=== PATIENT | female | born 1985 | race Caucasian/White ===

== ENCOUNTER 2017-10-09 01:11 | Emergency (ER) | payer MEDICAID ==
[2017-04-10 09:45] VITALS: Ht 160 cm; Wt 91.0 kg
[~2017-10-09] VITALS: Ht 160 cm; Wt 91.0 kg
[~2017-10-09 01:11] MED LIST: ACET-1935 PO; ALB0.5; ALB17R; ALB17R INH; ALB18R; ALB18R INH; ALB6.7R INH; ALBMDV INH; ALBU8.5H11 INH; ALBU8.5H12 IH; ALBU8.5H12 INH; ALP1 PO; ALP5 PO; ALPR-436 PO; ATRIPLA; AUG500 PO; AZI250 PO; AZIT500T47 PO; BEN100 PO; CALC-852 PO; CEFU250 PO; CEP500 PO; CEPH500T7 PO; CET10 PO; CIPR-326 PO; CIPR-344 PO; CITA-155 PO; CITA-156 PO; CITA10SO7 PO; CLI150 PO; CODE118S5 PO; COM14R IH; CYA1000 PO; CYAN100070 PO; CYAN100082 PO; CYC10 PO; CYCL10TA29 PO; DIP25 PO; DIPH-777 PO; DIVA250T83 PO; DOCU240C67 PO; DOXY-228 PO; DOXY-260 PO; DOXY150T6 PO; DOXY50SY2 PO; DUONEB INH; ERGO500029 PO; ESC10 PO; ESCI20TA38 PO; ESZO2TAB30 PO; ETHY1TAB10 PO; EYEBRIGHT; FLU100 PO; FLUC100T35 PO; FLUINH INH; FLUO-201; FOLI-68 PO; GUAI-652 PO; GUAI480S48 PO; HYD2 PO; HYD5L PO; HYDR-2954 PO; HYDR-4308 PO; HYDR2TAB41 PO; HYDR2TAB42 PO; HYDR473S4 PO; HYO125 SL; HYOS0.1287 PO; IBU600 PO; IBUP800T37 PO; IBUPROFEN PO; IPRUDR HHN; KET10 PO; LEV500 PO; LEV500P IV; LEVO25TA56 PO; LEVO50TA80 PO; LEVO750T25 PO; LEVO750T44 PO; LIT300 PO; LITH300T18 PO; LITH600C6 PO; LOM PO; LOPI1TAB PO; LOR10/325 PO; LOR5 PO; LOR5/325 PO; LORA-636 PO; LOT15T TOP; LURA40TA3 PO; MED150I IM; MELO-150 PO; METH4TAB57 PO; MID PO; MULT-806 PO; MULT1CAP41 PO; NAL50 PO; NAP250 PO; NAP550 PO; NAPR500T75 PO; NORG1TAB5 PO; OLAN10TA21; OMEP-114; OMEP-218 PO; OMEP40CA45; OND4 PO; ONDA4TAB PO; OXYC-865 PO; PAN40 PO; PER PO; PHEN120S16 PO; PHENA200 PO; PRE10 PO; PRE20 PO; PRE5 PO; PRED20TA6 PO; PREN-67 PO; PREN-85 PO; PRO25 PO; PROC25SU3 PO; PROM-110; PROM-110 PO; PROM12.546 PO; PROM50TA23 PO; QUET300T17 PO; ROBC PO; TOP25 PO; TOPI-121 PO; TRAM-420 PO; TRAZ-133 PO; TRAZ50 PO; TYLENOL; VENL25TA29 PO; VESICARE PO; ZPAK; [UNRECOGNIZED DRUG - CODE] GT; [UNRECOGNIZED DRUG - CODE] PO; [UNRECOGNIZED DRUG - CODE] PO; [UNRECOGNIZED DRUG - CODE] PO; [UNRECOGNIZED DRUG - CODE] PO; [UNRECOGNIZED DRUG - OTHER]
--- NOTE | 2017-10-09 01:28 | ER Report ---
History and Physical Time Seen By MD: 01:27 HPI/ROS CHIEF COMPLAINT: Vomiting, abdominal pain, 12 weeks HISTORY OF PRESENT ILLNESS: 31-year-old female G 4 P 3 at 12 weeks presents to the ER complaining of severe nausea and vomiting for the last 24 hours. She notes moderate epigastric pain. She denies exposure to ill contacts or consumption of bad food. She's not had a lot of symptoms regards to morning sickness. Patient has a history of being HIV positive. Patient denies vaginal bleeding or spotting. REVIEW OF SYSTEMS: Respiratory: No cough, no dyspnea. Cardiovascular: No chest pain, no palpitations. Gastrointestinal: As above Musculoskeletal: No back pain. Allergies: Coded Allergies: succinylcholine (Verified Allergy, Severe, CAN'T METABLOLIZE, 10/09/17) Family history only. Penicillins (Verified Allergy, Unknown, UNKNOWN, 10/09/17) Told as a girl. amoxicillin (Verified Allergy, Unknown, 10/09/17) erythromycin base (Verified Adverse Reaction, Mild, NAUSEA/VOMITING, 10/09) Home Meds Active Scripts Promethazine Hcl (PROMETHAZINE HCL) 25 Mg Tablet, 25 MG PO Q8H Y for NAUSEA/ VOMITING, #20 TAB Prov:COLT GUSTAFSON DO 10/09/17 Ondansetron (ZOFRAN ODT) 4 Mg Tab.rapdis, 4 MG PO every 6 hours Y for NAUSEA/ VOMITING, #15 TAB TAKE 1 TABLET BY MOUTH EVERY 12 HOURS Prov:COLT GUSTAFSON DO 10/09/17 Discontinued Reported Medications Citalopram Hydrobromide (CELEXA) 20 Mg Tablet, 2 TAB PO QDAY, #5 TAB 05/22/17 Discontinued Scripts Folic Acid (FOLIC ACID) 1 Mg Tablet, 1 TAB PO QDAY, #90 TAB 3 Refills Prov:ELDER MOCK MD 06/08/17 Cyanocobalamin (Vitamin B-12) (VITAMIN B-12) 1,000 Mcg Tablet, 1 TAB PO QDAY, # 90 CAPSULE 3 Refills Prov:ELDER MOCK MD 06/08/17 Albuterol Sulfate (VENTOLIN HFA) 18 Gm Inh, 2 PUFF INH Q4-6H Y for shortness of breath, #1 INH 5 Refills Prov:ELDER MOCK MD 05/26/17 Past Medical/Surgical History Pt is known to have HIV for approximately 10-12 years. Self stopped taking her Anti-Retrovirals "about 2-3 years ago." Pt is unsure of medications she was on at the time. Reports that she self stopped medications secondary to difficulty obtaining medications and no help from social work. History of IV drug abuse. Reports last methamphetamine or IV drug use was two years ago after her father overdosed. Does report using Marijuana occasionally. Tobacco use 1/2 ppd. Denies any alcohol use since finding out she was . Reviewed Nurses Notes: Yes Old Medical Records Reviewed: Yes Hx Smoking: Yes Smoking Status: Current: Every Day Smoker Exposure to Second Hand Smoke?: Yes Hx Substance Use Disorder: Yes (etoh, meth) Hx Alcohol Use: No Constitutional Vital Sign - Last 24 Hours 10/09/17 10/09/17 10/09/17 10/09/17 01:24 01:25 01:26 01:41 Temp 98.3 Pulse 71 76 65 Resp 20 B/P (MAP) 144/84 (104) 144/84 Pulse Ox 98 98 94 O2 Delivery Room Air 10/09/17 10/09/17 10/09/17 10/09/17 02:06 02:11 02:30 02:41 Pulse 77 64 B/P (MAP) 130/72 (91) 99/56 (70) Pulse Ox 99 10/09/17 10/09/17 10/09/17 10/09/17 02:56 03:01 03:11 03:16 Pulse 68 70 72 B/P (MAP) 74/67 (69) Pulse Ox 83 96 98 10/09/17 10/09/17 03:30 03:31 Pulse 68 B/P (MAP) 77/29 (45) Pulse Ox 93 Physical Exam General Appearance: The patient is alert, has no immediate need for airway protection and no current signs of toxicity. Vital signs stable, afebrile, pulse ox normal HEENT: Pupils equal and round no injection. Oropharynx without redness or exudate, mucous membranes are moist Respiratory: Chest is non tender, lungs are clear to auscultation. Cardiac: regular rate and rhythm Gastrointestinal: Abdomen is soft and non tender, no masses, bowel sounds normal. Musculoskeletal: Neck: Neck is supple and non tender. Extremities have full range of motion and are non tender. Skin: No rashes or lesions. DIFFERENTIAL DIAGNOSIS: After history and physical exam differential diagnosis was considered for abdominal pain including but not limited to appendicitis, cholecystitis, hyperemesis gravidarum, food poisoning, viral syndrome, gastritis and urinary tract infection. Medical Decision Making Data Points Result Diagram: 10/09/17 0205 10/09/17 0205 Laboratory Hematology Test 10/09/17 01:22 10/09/17 02:05 Urine Color Straw Urine Clarity Clear Urine pH 6.0 pH (4.8-9.5) Urine Specific [place] 1.009 Urine Protein Negative mg/dL (NEGATIVE) Urine Glucose (UA) Negative mg/dL (NEGATIVE) Urine Ketones Negative mg/dL (NEGATIVE) Urine Blood Moderate (NEGATIVE) Urine Nitrite Negative (NEGATIVE) Urine Bilirubin Negative (NEGATIVE) Urine Urobilinogen Negative mg/dL (0.2-1.9) Urine Leukocyte Esterase Negative (NEGATIVE) Urine RBC 13 /HPF (0-2/HPF) Urine WBC None /HPF (0-5/HPF) Urine Squamous Epithelial Cells Moderate /LPF (</=FEW) Urine Bacteria Negative /HPF (NONE-FEW) Urine Mucus None /HPF (NONE-FEW) Red Blood Count 4.71 M/uL (4.17-5.56) Mean Corpuscular Volume 85.8 fL (80.0-96.0) Mean Corpuscular Hemoglobin 29.1 pg (26.0-33.0) Mean Corpuscular Hemoglobin Concent 33.8 g/dL (32.0-36.0) Red Cell Distribution Width 14.8 % (11.5-14.5) Mean Platelet Volume 7.4 fL (7.2-11.1) Neutrophils (%) (Auto) 69.2 % (39.4-72.5) Lymphocytes (%) (Auto) 21.2 % (17.6-49.6) Monocytes (%) (Auto) 7.8 % (4.1-12.4) Eosinophils (%) (Auto) 1.1 % (0.4-6.7) Basophils (%) (Auto) 0.7 % (0.3-1.4) Nucleated RBC Relative Count (auto) 0.1 /100WBC Neutrophils # (Auto) 3.0 K/uL (2.0-7.4) Lymphocytes # (Auto) 0.9 K/uL (1.3-3.6) Monocytes # (Auto) 0.3 K/uL (0.3-1.0) Eosinophils # (Auto) 0.0 K/uL (0.0-0.5) Basophils # (Auto) 0.0 K/uL (0.0-0.1) Nucleated RBC Absolute Count (auto) 0.00 K/uL Sodium Level 136 mmol/L (137-145) Potassium Level 3.7 mmol/L (3.5-5.0) Chloride Level 106 mmol/L (98-107) Carbon Dioxide Level 23 mmol/L (22-31) Blood Urea Nitrogen 7 mg/dl (7-18) Creatinine 0.60 mg/dl (0.52-1.04) Glomerular Filtration Rate Calc > 60.0 Random Glucose 75 mg/dl (75-110) Calcium Level 8.7 mg/dl (8.4-10.2) Total Bilirubin 0.4 mg/dl (0.2-1.3) Aspartate Amino Transf (AST/SGOT) 11 U/L (0-35) Alanine Aminotransferase (ALT/SGPT) 26 U/L (0-56) Alkaline Phosphatase 60 U/L (0-126) Total Protein 6.5 gm/dl (6.3-8.2) Albumin 3.3 g/dl (3.5-5.0) Amylase Level 50 U/L (0-110) Lipase 67 U/L (23-300) Human Chorionic Gonadotropin, Qual Positive (NEGATIVE) Chemistry Test 10/09/17 01:22 10/09/17 02:05 Urine Color Straw Urine Clarity Clear Urine pH 6.0 pH (4.8-9.5) Urine Specific [place] 1.009 Urine Protein Negative mg/dL (NEGATIVE) Urine Glucose (UA) Negative mg/dL (NEGATIVE) Urine Ketones Negative mg/dL (NEGATIVE) Urine Blood Moderate (NEGATIVE) Urine Nitrite Negative (NEGATIVE) Urine Bilirubin Negative (NEGATIVE) Urine Urobilinogen Negative mg/dL (0.2-1.9) Urine Leukocyte Esterase Negative (NEGATIVE) Urine RBC 13 /HPF (0-2/HPF) Urine WBC None /HPF (0-5/HPF) Urine Squamous Epithelial Cells Moderate /LPF (</=FEW) Urine Bacteria Negative /HPF (NONE-FEW) Urine Mucus None /HPF (NONE-FEW) White Blood Count 4.3 k/uL (4.5-11.0) Red Blood Count 4.71 M/uL (4.17-5.56) Hemoglobin 13.7 g/dL (12.0-16.0) Hematocrit 40.4 % (34.0-47.0) Mean Corpuscular Volume 85.8 fL (80.0-96.0) Mean Corpuscular Hemoglobin 29.1 pg (26.0-33.0) Mean Corpuscular Hemoglobin Concent 33.8 g/dL (32.0-36.0) Red Cell Distribution Width 14.8 % (11.5-14.5) Platelet Count 287 K/uL (150-450) Mean Platelet Volume 7.4 fL (7.2-11.1) Neutrophils (%) (Auto) 69.2 % (39.4-72.5) Lymphocytes (%) (Auto) 21.2 % (17.6-49.6) Monocytes (%) (Auto) 7.8 % (4.1-12.4) Eosinophils (%) (Auto) 1.1 % (0.4-6.7) Basophils (%) (Auto) 0.7 % (0.3-1.4) Nucleated RBC Relative Count (auto) 0.1 /100WBC Neutrophils # (Auto) 3.0 K/uL (2.0-7.4) Lymphocytes # (Auto) 0.9 K/uL (1.3-3.6) Monocytes # (Auto) 0.3 K/uL (0.3-1.0) Eosinophils # (Auto) 0.0 K/uL (0.0-0.5) Basophils # (Auto) 0.0 K/uL (0.0-0.1) Nucleated RBC Absolute Count (auto) 0.00 K/uL Glomerular Filtration Rate Calc > 60.0 Calcium Level 8.7 mg/dl (8.4-10.2) Total Bilirubin 0.4 mg/dl (0.2-1.3) Aspartate Amino Transf (AST/SGOT) 11 U/L (0-35) Alanine Aminotransferase (ALT/SGPT) 26 U/L (0-56) Alkaline Phosphatase 60 U/L (0-126) Total Protein 6.5 gm/dl (6.3-8.2) Albumin 3.3 g/dl (3.5-5.0) Amylase Level 50 U/L (0-110) Lipase 67 U/L (23-300) Human Chorionic Gonadotropin, Qual Positive (NEGATIVE) Urinalysis Test 10/09/17 01:22 Urine Color Straw Urine Clarity Clear Urine pH 6.0 pH (4.8-9.5) Urine Specific [place] 1.009 Urine Protein Negative mg/dL (NEGATIVE) Urine Glucose (UA) Negative mg/dL (NEGATIVE) Urine Ketones Negative mg/dL (NEGATIVE) Urine Blood Moderate (NEGATIVE) Urine Nitrite Negative (NEGATIVE) Urine Bilirubin Negative (NEGATIVE) Urine Urobilinogen Negative mg/dL (0.2-1.9) Urine Leukocyte Esterase Negative (NEGATIVE) Urine RBC 13 /HPF (0-2/HPF) Urine WBC None /HPF (0-5/HPF) Urine Squamous Epithelial Cells Moderate /LPF (</=FEW) Urine Bacteria Negative /HPF (NONE-FEW) Urine Mucus None /HPF (NONE-FEW) ED Course/Re-evaluation Clinical Indication for ER IV: Hydration, IV Access ED Course Patient was admitted to an examination room. H&P was done. The differential diagnoses was considered. Patient with intractable vomiting for 24 hours. Patient's 12 weeks . She's not had any OB care to this point. She is HIV positive. She has a history of methamphetamine abuse and alcohol abuse. She states she's been sober for 4 weeks. Patient's treated with IV fluids and Zofran 8 mg. She is discharged home after feeling much better. Diagnostic studies show no abnormalities except a mildly low white blood cell count consistent with her HIV status. Patient's discharged home with prescription for Zofran and Phenergan. She is advised clear liquid diet for the next 24 hours and advance as tolerated. She is advised to follow-up with [facility]. Decision to Disposition Date: Oct 09, 2017 Decision to Disposition Time: 03:20 Depart Departure Latest Vital Signs Vital Signs Date Time Temp Pulse Resp B/P (MAP) Pulse Ox O2 Delivery O2 Flow Rate FiO2 10/09/17 03:31 68 93 10/09/17 03:30 77/29 (45) 10/09/17 01:25 98.3 20 Room Air Impression: Primary Impression: Hyperemesis Additional Impression: HIV positive Condition: Improved Disposition: HOME OR SELF-CARE Referrals: ELDER MOCK MD (PCP) TYE BIRMINGHAM MD New Scripts Promethazine Hcl (PROMETHAZINE HCL) 25 Mg Tablet 25 MG PO Q8H Y for NAUSEA/VOMITING, #20 TAB Prov: COLT GUSTAFSON DO 10/09/17 Ondansetron (ZOFRAN ODT) 4 Mg Tab.rapdis 4 MG PO every 6 hours Y for NAUSEA/VOMITING, #15 TAB TAKE 1 TABLET BY MOUTH EVERY 12 HOURS Prov: COLT GUSTAFSON DO 10/09/17 Patient Instructions: Hyperemesis Gravidarum (ED) Additional Instructions: Use Zofran to control your nausea Drink plenty of fluids, especially sugary fluids Follow-up with [facility] if unimproved in 2-4 days Return to the ER for any worsening Problem Qualifiers Primary Impression: Hyperemesis Vomiting type: unspecified Nausea presence: with nausea Qualified Codes: R11.2 - Nausea with vomiting, unspecified COLT GUSTAFSON DO Oct 09, 2017 01:28
[2017-10-09] MEDS ORDERED: LR(*) 1000 ML BAG 1,000 ML IV ONE (01:37)
[2017-10-09] MEDS ORDERED: ONDANSETRON 4 MG/2 ML VIAL IVP ONE (01:40)
[2017-10-09 02:23] LABS: PLATELET COUNT, AUTOMATED 287 K/uL (150-450)
[2017-10-09] MEDS ORDERED: ONDA4TAB PO (03:24)
[2017-10-09 03:30] VITALS: BP 77/29
[2017-10-09] MEDS ORDERED: PROMETHAZINE HCL 25 MG TAB TH 2 TAB/BOTTLE PO ONE (03:30)
[2017-10-09] MEDS ORDERED: ONDANSETRON 4 MG ODT TH SL ONE (03:30)
[2017-10-09] MEDS ORDERED: PROM-110 PO (03:32)
== END 2017-10-09 03:52 | disposition home or self-care (01) ==
LOC: ER 01:36
DX: O21.0 Mild hyperemesis gravidarum (principal); Z3A.12 12 weeks gestation of pregnancy
CPT/HCPCS: 81001; 82150; 83690; 84703; 85025; 96361; 96374; 99283; J2405; J7120; S0119; 82040; 82247; 82310; 82374; 82435; 82565; 82947; 84075; 84132; 84155; 84295; 84450; 84460; 84520

== ENCOUNTER 2017-10-13 23:44 | Emergency (ER) | payer MEDICAID ==
[2017-04-10 09:45] VITALS: Ht 160 cm; Wt 93.0 kg
[~2017-10-13] VITALS: Ht 160 cm; Wt 93.0 kg
--- NOTE | 2017-10-14 00:07 | ER Report ---
History and Physical Time Seen By MD: 00:05 Hx. of Stated Complaint: PT STATES THAT SHE GOT UP TO USE RESTROOM AND SHE HAS A LARGE DISCHARGE OF BLOOD MUCUS FROM HER VAGINA. SHE IS 13 WEEKS . REPORTS THAT SHE NOW HAS CRAMPING. HPI/ROS at approximately 13 weeks gestation presents to the emergency department with an episode of vaginal bleeding earlier this evening. She had one episode only and her vaginal bleeding has now stopped. She reports mild suprapubic cramping otherwise she is back to baseline. Remainder of the 14 system rev: Yes Allergies: Coded Allergies: succinylcholine (Verified Allergy, Severe, CAN'T METABLOLIZE, 10/13/17) Family history only. Penicillins (Verified Allergy, Unknown, UNKNOWN, 10/13/17) Told as a girl. amoxicillin (Verified Allergy, Unknown, 10/13/17) erythromycin base (Verified Adverse Reaction, Mild, NAUSEA/VOMITING, ) Home Meds Active Scripts Promethazine Hcl (PROMETHAZINE HCL) 25 Mg Tablet, 25 MG PO Q8H Y for NAUSEA/ VOMITING, #20 TAB Prov:COLT GUSTAFSON DO 10/09/17 Ondansetron (ZOFRAN ODT) 4 Mg Tab.rapdis, 4 MG PO every 6 hours Y for NAUSEA/ VOMITING, #15 TAB TAKE 1 TABLET BY MOUTH EVERY 12 HOURS Prov:COLT GUSTAFSON DO 10/09/17 Discontinued Reported Medications Citalopram Hydrobromide (CELEXA) 20 Mg Tablet, 2 TAB PO QDAY, #5 TAB 05/22/17 Discontinued Scripts Folic Acid (FOLIC ACID) 1 Mg Tablet, 1 TAB PO QDAY, #90 TAB 3 Refills Prov:ELDER MOCK MD 06/08/17 Cyanocobalamin (Vitamin B-12) (VITAMIN B-12) 1,000 Mcg Tablet, 1 TAB PO QDAY, # 90 CAPSULE 3 Refills Prov:ELDER MOCK MD 06/08/17 Albuterol Sulfate (VENTOLIN HFA) 18 Gm Inh, 2 PUFF INH Q4-6H Y for shortness of breath, #1 INH 5 Refills Prov:ELDER MOCK MD 05/26/17 Reviewed Nurses Notes: Yes Old Medical Records Reviewed: Yes Hx Smoking: Yes Smoking Status: Current: Every Day Smoker Exposure to Second Hand Smoke?: Yes Hx Substance Use Disorder: Yes (etoh, meth - CLEAN 30 DAYS TODAY) Hx Alcohol Use: No Constitutional Vital Sign - Last 24 Hours 10/13/17 10/13/17 10/14/17 10/14/17 23:52 23:57 00:00 00:03 Temp 99.0 Pulse 84 84 Resp 22 B/P (MAP) 114/73 114/73 (87) 109/59 (76) Pulse Ox 97 O2 Delivery Room Air 10/14/17 00:15 Pulse 75 Pulse Ox 96 Physical Exam General Appearance: The patient is alert, has no immediate need for airway protection and no current signs of toxicity. Eyes: Pupils equal and round no injection. Respiratory: Chest is non tender, lungs are clear to auscultation. Cardiac: regular rate and rhythm Gastrointestinal: Abdomen is soft and non tender, no masses, bowel sounds normal. : Os closed, no discharge, no bleeding, no CMT Skin: No rashes or lesions. DIFFERENTIAL DIAGNOSIS: After history and physical exam differential diagnosis was considered for TAB, UTI, chorionic hemorrhage Medical Decision Making Data Points Result Diagram: 10/13/17 2915 10/13/17 2359 Laboratory Hematology Test 10/13/17 23:55 10/14/17 00:20 Red Blood Count 4.57 M/uL (4.17-5.56) Mean Corpuscular Volume 86.0 fL (80.0-96.0) Mean Corpuscular Hemoglobin 29.5 pg (26.0-33.0) Mean Corpuscular Hemoglobin Concent 34.3 g/dL (32.0-36.0) Red Cell Distribution Width 14.9 % (11.5-14.5) Mean Platelet Volume 7.3 fL (7.2-11.1) Neutrophils (%) (Auto) 70.8 % (39.4-72.5) Lymphocytes (%) (Auto) 20.4 % (17.6-49.6) Monocytes (%) (Auto) 6.4 % (4.1-12.4) Eosinophils (%) (Auto) 1.6 % (0.4-6.7) Basophils (%) (Auto) 0.8 % (0.3-1.4) Nucleated RBC Relative Count (auto) 0.0 /100WBC Neutrophils # (Auto) 3.2 K/uL (2.0-7.4) Lymphocytes # (Auto) 0.9 K/uL (1.3-3.6) Monocytes # (Auto) 0.3 K/uL (0.3-1.0) Eosinophils # (Auto) 0.1 K/uL (0.0-0.5) Basophils # (Auto) 0.0 K/uL (0.0-0.1) Nucleated RBC Absolute Count (auto) 0.00 K/uL Urine Color Yellow Urine Clarity Slightly-cloudy Urine pH 6.0 pH (4.8-9.5) Urine Specific [place] 1.021 Urine Protein Negative mg/dL (NEGATIVE) Urine Glucose (UA) Negative mg/dL (NEGATIVE) Urine Ketones Negative mg/dL (NEGATIVE) Urine Blood Large (NEGATIVE) Urine Nitrite Negative (NEGATIVE) Urine Bilirubin Negative (NEGATIVE) Urine Urobilinogen Negative mg/dL (0.2-1.9) Urine Leukocyte Esterase Negative (NEGATIVE) Urine RBC 2 /HPF (0-2/HPF) Urine WBC 3 /HPF (0-5/HPF) Urine Squamous Epithelial Cells Many /LPF (</=FEW) Urine Amorphous Crystals Moderate /HPF Urine Bacteria Negative /HPF (NONE-FEW) Urine Mucus Few /HPF (NONE-FEW) Sodium Level 136 mmol/L (137-145) Potassium Level 3.6 mmol/L (3.5-5.0) Chloride Level 105 mmol/L (98-107) Carbon Dioxide Level 23 mmol/L (22-31) Blood Urea Nitrogen 12 mg/dl (7-18) Creatinine 0.70 mg/dl (0.52-1.04) Glomerular Filtration Rate Calc > 60.0 Random Glucose 82 mg/dl (75-110) Calcium Level 8.8 mg/dl (8.4-10.2) Total Bilirubin 0.4 mg/dl (0.2-1.3) Aspartate Amino Transf (AST/SGOT) 11 U/L (0-35) Alanine Aminotransferase (ALT/SGPT) 26 U/L (0-56) Alkaline Phosphatase 63 U/L (0-126) Total Protein 6.4 gm/dl (6.3-8.2) Albumin 3.2 g/dl (3.5-5.0) Human Chorionic Gonadotropin, Quant [id number] mIU/ml Chemistry Test 10/13/17 23:55 10/14/17 00:20 White Blood Count 4.6 k/uL (4.5-11.0) Red Blood Count 4.57 M/uL (4.17-5.56) Hemoglobin 13.5 g/dL (12.0-16.0) Hematocrit 39.3 % (34.0-47.0) Mean Corpuscular Volume 86.0 fL (80.0-96.0) Mean Corpuscular Hemoglobin 29.5 pg (26.0-33.0) Mean Corpuscular Hemoglobin Concent 34.3 g/dL (32.0-36.0) Red Cell Distribution Width 14.9 % (11.5-14.5) Platelet Count 300 K/uL (150-450) Mean Platelet Volume 7.3 fL (7.2-11.1) Neutrophils (%) (Auto) 70.8 % (39.4-72.5) Lymphocytes (%) (Auto) 20.4 % (17.6-49.6) Monocytes (%) (Auto) 6.4 % (4.1-12.4) Eosinophils (%) (Auto) 1.6 % (0.4-6.7) Basophils (%) (Auto) 0.8 % (0.3-1.4) Nucleated RBC Relative Count (auto) 0.0 /100WBC Neutrophils # (Auto) 3.2 K/uL (2.0-7.4) Lymphocytes # (Auto) 0.9 K/uL (1.3-3.6) Monocytes # (Auto) 0.3 K/uL (0.3-1.0) Eosinophils # (Auto) 0.1 K/uL (0.0-0.5) Basophils # (Auto) 0.0 K/uL (0.0-0.1) Nucleated RBC Absolute Count (auto) 0.00 K/uL Urine Color Yellow Urine Clarity Slightly-cloudy Urine pH 6.0 pH (4.8-9.5) Urine Specific [place] 1.021 Urine Protein Negative mg/dL (NEGATIVE) Urine Glucose (UA) Negative mg/dL (NEGATIVE) Urine Ketones Negative mg/dL (NEGATIVE) Urine Blood Large (NEGATIVE) Urine Nitrite Negative (NEGATIVE) Urine Bilirubin Negative (NEGATIVE) Urine Urobilinogen Negative mg/dL (0.2-1.9) Urine Leukocyte Esterase Negative (NEGATIVE) Urine RBC 2 /HPF (0-2/HPF) Urine WBC 3 /HPF (0-5/HPF) Urine Squamous Epithelial Cells Many /LPF (</=FEW) Urine Amorphous Crystals Moderate /HPF Urine Bacteria Negative /HPF (NONE-FEW) Urine Mucus Few /HPF (NONE-FEW) Glomerular Filtration Rate Calc > 60.0 Calcium Level 8.8 mg/dl (8.4-10.2) Total Bilirubin 0.4 mg/dl (0.2-1.3) Aspartate Amino Transf (AST/SGOT) 11 U/L (0-35) Alanine Aminotransferase (ALT/SGPT) 26 U/L (0-56) Alkaline Phosphatase 63 U/L (0-126) Total Protein 6.4 gm/dl (6.3-8.2) Albumin 3.2 g/dl (3.5-5.0) Human Chorionic Gonadotropin, Quant [id number] mIU/ml Urinalysis Test 10/13/17 23:55 Urine Color Yellow Urine Clarity Slightly-cloudy Urine pH 6.0 pH (4.8-9.5) Urine Specific [place] 1.021 Urine Protein Negative mg/dL (NEGATIVE) Urine Glucose (UA) Negative mg/dL (NEGATIVE) Urine Ketones Negative mg/dL (NEGATIVE) Urine Blood Large (NEGATIVE) Urine Nitrite Negative (NEGATIVE) Urine Bilirubin Negative (NEGATIVE) Urine Urobilinogen Negative mg/dL (0.2-1.9) Urine Leukocyte Esterase Negative (NEGATIVE) Urine RBC 2 /HPF (0-2/HPF) Urine WBC 3 /HPF (0-5/HPF) Urine Squamous Epithelial Cells Many /LPF (</=FEW) Urine Amorphous Crystals Moderate /HPF Urine Bacteria Negative /HPF (NONE-FEW) Urine Mucus Few /HPF (NONE-FEW) ED Course/Re-evaluation ED Course at 13 weeks gestation presents to the emergency department with 1 episode of vaginal bleeding earlier this evening that has since stopped. A bedside ultrasound was performed by me, and shows good movement a heart rate in the 160s. Pelvic exam was performed. No vaginal discharge, os is closed , and no ongoing vaginal bleeding. No abdominal pain or tenderness to palpation. UA within normal limits. Blood type is O+. Has OB appointment tomorrow. Given bleeding precautions. Decision to Disposition Date: Oct 14, 2017 Decision to Disposition Time: 02:19 Depart Departure Latest Vital Signs Vital Signs Date Time Temp Pulse Resp B/P (MAP) Pulse Ox O2 Delivery O2 Flow Rate FiO2 10/14/17 00:15 75 96 10/14/17 00:03 109/59 (76) 10/13/17 23:52 99.0 22 Room Air Impression: Primary Impression: Threatened in second trimester Condition: Improved Disposition: HOME OR SELF-CARE Referrals: ELDER MOCK MD (PCP) Patient Instructions: Threatened Miscarriage (ED) SANDHYA BAE MD Oct 14, 2017 00:07
[2017-10-14 00:09] LABS: PLATELET COUNT, AUTOMATED 300 K/uL (150-450)
[2017-10-14 02:37] VITALS: BP 103/57
== END 2017-10-14 02:44 | disposition home or self-care (01) ==
LOC: ER 23:47
DX: O20.0 Threatened abortion (principal); Z3A.13 13 weeks gestation of pregnancy
CPT/HCPCS: 81001; 82040; 82247; 82310; 82374; 82435; 82565; 82947; 84075; 84132; 84155; 84295; 84450; 84460; 84520; 84702; 85025; 86850; 86900; 86901; 99284

== ENCOUNTER 2017-10-19 12:14 | Emergency (ER) | payer MEDICAID ==
[2017-04-10 09:45] VITALS: Ht 160 cm; Wt 96.2 kg
[~2017-10-19] VITALS: Ht 160 cm; Wt 96.2 kg
[2017-10-19] MEDS ORDERED: NS(*) 0.9% 1000 ML BAG 1,000 ML IV ONE (12:18)
[2017-10-19] MEDS ORDERED: ONDANSETRON 4 MG/2 ML VIAL IVP ONE (12:20)
--- NOTE | 2017-10-19 12:24 | ER Report ---
History and Physical Time Seen By MD: 12:24 HPI/ROS CHIEF COMPLAINT: Vomiting, nausea, diarrhea, 13 weeks HISTORY OF PRESENT ILLNESS: 31-year-old female patient presents to emergency room with complaint of nausea, vomiting and diarrhea. Patient states that she is currently 13 weeks . She states this started approximately 2:00 this morning. She states since then she's been having frequent bouts of emesis as well as diarrhea. Patient states that the nose episodes have been quite mild. She states she's been doing fine with her Zofran and Phenergan previously. She denies having any fevers however she states she has been chilled. Patient states she's taken Zofran since this started without any improvement. She states she was recently told that she has a urinary tract infection. Patient also states she has chest pain. REVIEW OF SYSTEMS: Respiratory: No cough, no dyspnea. Cardiovascular: As noted above. Gastrointestinal: As noted above Musculoskeletal: No back pain. Allergies: Coded Allergies: succinylcholine (Verified Allergy, Severe, CAN'T METABLOLIZE, 10/19/17) Family history only. Penicillins (Verified Allergy, Unknown, UNKNOWN, 10/19/17) Told as a girl. amoxicillin (Verified Allergy, Unknown, 10/19/17) erythromycin base (Verified Adverse Reaction, Mild, NAUSEA/VOMITING, ) Home Meds Active Scripts Promethazine Hcl (PROMETHAZINE HCL) 25 Mg Supp.rect, 25 MG RC Q8H Y for NAUSEA/ VOMITING, #12 SUPP.RECT Prov:EDWAR SALGADO FABRICATING MACHINE OPERATOR 10/19/17 Promethazine Hcl (PROMETHAZINE HCL) 25 Mg Tablet, 25 MG PO Q8H Y for NAUSEA/ VOMITING, #20 TAB Prov:COLT GUSTAFSON DO 10/09/17 Ondansetron (ZOFRAN ODT) 4 Mg Tab.rapdis, 4 MG PO every 6 hours Y for NAUSEA/ VOMITING, #15 TAB TAKE 1 TABLET BY MOUTH EVERY 12 HOURS Prov:COLT GUSTAFSON DO 10/09/17 Reported Medications [Cylexa] No Conflict Check 10/19/17 Past Medical/Surgical History Patient has a past medical history of migraines, pneumonia, COPD, IBS, spastic colon, hiatal hernia, frequent UTI, ovarian cyst, sprained ankles, back pain, hypoglycemia, hypothyroidism, HIV positive, alcohol abuse, meth abuse, anxiety and depression, cervical cancer. Patient has a surgical history of cryosurgery on cervix. Patient has a family medical history of diabetes, psychiatric problems, cancer. Reviewed Nurses Notes: Yes Hx Smoking: Yes Smoking Status: Current: Every Day Smoker Exposure to Second Hand Smoke?: Yes Hx Substance Use Disorder: Yes (etoh, meth - CLEAN 30 DAYS TODAY) Hx Alcohol Use: No Constitutional Vital Sign - Last 24 Hours 10/19/17 10/19/17 10/19/17 10/19/17 12:24 12:27 12:29 12:30 Temp 98.6 Pulse 100 124 Resp 14 B/P (MAP) 151/136 (141) 120/79 120/79 (93) Pulse Ox 94 O2 Delivery Room Air 10/19/17 10/19/17 10/19/17 10/19/17 12:44 13:00 13:14 13:29 Pulse 106 92 93 Resp 22 19 28 B/P (MAP) 111/74 (86) Pulse Ox 95 91 94 10/19/17 10/19/17 13:30 13:44 Pulse 97 Resp 14 B/P (MAP) 113/64 (80) Pulse Ox 94 Intake and Output 10/19/17 10/19/17 10/20/17 15:00 23:00 07:00 Intake Total 1000 ml Balance 1000 ml Physical Exam General Appearance: The patient is alert, has no immediate need for airway protection and no current signs of toxicity. ENT: Tympanic membranes are pearly-luna, auditory canals are patent, mucous membranes are moist. Respiratory: Chest is non tender, lungs are clear to auscultation. Cardiac: regular rate and rhythm Gastrointestinal: Abdomen is soft and non tender, no masses, bowel sounds normal. Musculoskeletal: Neck: Neck is supple and non tender. Extremities have full range of motion and are non tender. Skin: No rashes or lesions. DIFFERENTIAL DIAGNOSIS: After history and physical exam differential diagnosis was considered for nausea and vomiting including but not limited to gastroenteritis, gastritis, appendicitis, and medication side effect. Medical Decision Making Data Points Result Diagram: 10/19/17 1239 10/19/17 1239 Laboratory Hematology Test 10/19/17 12:18 10/19/17 12:39 Urine Color Adamaris Urine Clarity Turbid Urine pH 5.0 pH (4.8-9.5) Urine Specific [place] 1.027 Urine Protein 30 mg/dL (NEGATIVE) Urine Glucose (UA) Negative mg/dL (NEGATIVE) Urine Ketones Negative mg/dL (NEGATIVE) Urine Blood Small (NEGATIVE) Urine Nitrite Negative (NEGATIVE) Urine Bilirubin Negative (NEGATIVE) Urine Urobilinogen Negative mg/dL (0.2-1.9) Urine Leukocyte Esterase Trace (NEGATIVE) Urine RBC None /HPF (0-2/HPF) Urine WBC 4 /HPF (0-5/HPF) Urine Squamous Epithelial Cells Many /LPF (</=FEW) Urine Amorphous Crystals Few /HPF Urine Bacteria Few /HPF (NONE-FEW) Urine Mucus Few /HPF (NONE-FEW) Urine Opiates Screen Negative Urine Barbiturates Screen Negative Ur Tricyclic Antidepressants Screen Negative Urine Phencyclidine Screen Negative Urine Amphetamines Screen Negative Urine Benzodiazepines Screen Negative Urine Cocaine Screen Negative Urine Cannabinoids Screen Negative Red Blood Count 5.49 M/uL (4.17-5.56) Mean Corpuscular Volume 85.3 fL (80.0-96.0) Mean Corpuscular Hemoglobin 29.3 pg (26.0-33.0) Mean Corpuscular Hemoglobin Concent 34.3 g/dL (32.0-36.0) Red Cell Distribution Width 15.2 % (11.5-14.5) Mean Platelet Volume 7.2 fL (7.2-11.1) Neutrophils (%) (Auto) 94.2 % (39.4-72.5) Lymphocytes (%) (Auto) 4.0 % (17.6-49.6) Monocytes (%) (Auto) 1.2 % (4.1-12.4) Eosinophils (%) (Auto) 0.0 % (0.4-6.7) Basophils (%) (Auto) 0.6 % (0.3-1.4) Nucleated RBC Relative Count (auto) 0.0 /100WBC Neutrophils # (Auto) 10.9 K/uL (2.0-7.4) Lymphocytes # (Auto) 0.5 K/uL (1.3-3.6) Monocytes # (Auto) 0.1 K/uL (0.3-1.0) Eosinophils # (Auto) 0.0 K/uL (0.0-0.5) Basophils # (Auto) 0.1 K/uL (0.0-0.1) Nucleated RBC Absolute Count (auto) 0.00 K/uL Sodium Level 137 mmol/L (137-145) Potassium Level 4.2 mmol/L (3.5-5.0) Chloride Level 105 mmol/L (98-107) Carbon Dioxide Level 15 mmol/L (22-31) Blood Urea Nitrogen 20 mg/dl (7-18) Creatinine 0.80 mg/dl (0.52-1.04) Glomerular Filtration Rate Calc > 60.0 Random Glucose 136 mg/dl (75-110) Calcium Level 10.0 mg/dl (8.4-10.2) Total Bilirubin 0.9 mg/dl (0.2-1.3) Aspartate Amino Transf (AST/SGOT) 23 U/L (0-35) Alanine Aminotransferase (ALT/SGPT) 21 U/L (0-56) Alkaline Phosphatase 91 U/L (0-126) Troponin I < 0.012 ng/ml Total Protein 8.6 gm/dl (6.3-8.2) Albumin 4.6 g/dl (3.5-5.0) Amylase Level 60 U/L (0-110) Lipase 36 U/L (23-300) Chemistry Test 10/19/17 12:18 10/19/17 12:39 Urine Color Adamaris Urine Clarity Turbid Urine pH 5.0 pH (4.8-9.5) Urine Specific [place] 1.027 Urine Protein 30 mg/dL (NEGATIVE) Urine Glucose (UA) Negative mg/dL (NEGATIVE) Urine Ketones Negative mg/dL (NEGATIVE) Urine Blood Small (NEGATIVE) Urine Nitrite Negative (NEGATIVE) Urine Bilirubin Negative (NEGATIVE) Urine Urobilinogen Negative mg/dL (0.2-1.9) Urine Leukocyte Esterase Trace (NEGATIVE) Urine RBC None /HPF (0-2/HPF) Urine WBC 4 /HPF (0-5/HPF) Urine Squamous Epithelial Cells Many /LPF (</=FEW) Urine Amorphous Crystals Few /HPF Urine Bacteria Few /HPF (NONE-FEW) Urine Mucus Few /HPF (NONE-FEW) Urine Opiates Screen Negative Urine Barbiturates Screen Negative Ur Tricyclic Antidepressants Screen Negative Urine Phencyclidine Screen Negative Urine Amphetamines Screen Negative Urine Benzodiazepines Screen Negative Urine Cocaine Screen Negative Urine Cannabinoids Screen Negative White Blood Count 11.6 k/uL (4.5-11.0) Red Blood Count 5.49 M/uL (4.17-5.56) Hemoglobin 16.1 g/dL (12.0-16.0) Hematocrit 46.8 % (34.0-47.0) Mean Corpuscular Volume 85.3 fL (80.0-96.0) Mean Corpuscular Hemoglobin 29.3 pg (26.0-33.0) Mean Corpuscular Hemoglobin Concent 34.3 g/dL (32.0-36.0) Red Cell Distribution Width 15.2 % (11.5-14.5) Platelet Count 423 K/uL (150-450) Mean Platelet Volume 7.2 fL (7.2-11.1) Neutrophils (%) (Auto) 94.2 % (39.4-72.5) Lymphocytes (%) (Auto) 4.0 % (17.6-49.6) Monocytes (%) (Auto) 1.2 % (4.1-12.4) Eosinophils (%) (Auto) 0.0 % (0.4-6.7) Basophils (%) (Auto) 0.6 % (0.3-1.4) Nucleated RBC Relative Count (auto) 0.0 /100WBC Neutrophils # (Auto) 10.9 K/uL (2.0-7.4) Lymphocytes # (Auto) 0.5 K/uL (1.3-3.6) Monocytes # (Auto) 0.1 K/uL (0.3-1.0) Eosinophils # (Auto) 0.0 K/uL (0.0-0.5) Basophils # (Auto) 0.1 K/uL (0.0-0.1) Nucleated RBC Absolute Count (auto) 0.00 K/uL Glomerular Filtration Rate Calc > 60.0 Calcium Level 10.0 mg/dl (8.4-10.2) Total Bilirubin 0.9 mg/dl (0.2-1.3) Aspartate Amino Transf (AST/SGOT) 23 U/L (0-35) Alanine Aminotransferase (ALT/SGPT) 21 U/L (0-56) Alkaline Phosphatase 91 U/L (0-126) Troponin I < 0.012 ng/ml Total Protein 8.6 gm/dl (6.3-8.2) Albumin 4.6 g/dl (3.5-5.0) Amylase Level 60 U/L (0-110) Lipase 36 U/L (23-300) Toxicology Test 10/19/17 12:18 Urine Opiates Screen Negative Urine Barbiturates Screen Negative Ur Tricyclic Antidepressants Screen Negative Urine Phencyclidine Screen Negative Urine Amphetamines Screen Negative Urine Benzodiazepines Screen Negative Urine Cocaine Screen Negative Urine Cannabinoids Screen Negative Urinalysis Test 10/19/17 12:18 Urine Color [place]aris Urine Clarity Turbid Urine pH 5.0 pH (4.8-9.5) Urine Specific [place] 1.027 Urine Protein 30 mg/dL (NEGATIVE) Urine Glucose (UA) Negative mg/dL (NEGATIVE) Urine Ketones Negative mg/dL (NEGATIVE) Urine Blood Small (NEGATIVE) Urine Nitrite Negative (NEGATIVE) Urine Bilirubin Negative (NEGATIVE) Urine Urobilinogen Negative mg/dL (0.2-1.9) Urine Leukocyte Esterase Trace (NEGATIVE) Urine RBC None /HPF (0-2/HPF) Urine WBC 4 /HPF (0-5/HPF) Urine Squamous Epithelial Cells Many /LPF (</=FEW) Urine Amorphous Crystals Few /HPF Urine Bacteria Few /HPF (NONE-FEW) Urine Mucus Few /HPF (NONE-FEW) EKG/Imaging EKG Interpretation 12 lead EKG: Rhythm: Sinus tachycardia with a ventricular rate of 108 bpm Hurricane: Rightward axis QRS: normal ST segments: normal ED Course/Re-evaluation ED Course Patient was medicated exam room, history and physical for pain. Differential diagnoses were considered. On examination lungs are clear, heart is regular. Patient did vomit while I was in the room, and is mostly clear liquid. An IV was started, CBC, CMP, urinalysis, urine drug screen were obtained. The labs were unremarkable, patient had no ketones in her urine. Urine drug screen was negative. Patient received a liter of normal saline, 4 mg Zofran. After approximately 50 minutes patient states she is having more nausea. The patient then received 12.5 mg Zofran. On reexamination patient states she's feeling significantly better, she does have some tenderness due to vomiting. Patient states she is feeling ready to go home. We will go ahead and discharge her at this time. Patient does have oral Zofran at home, however she is concerned she is unable to keep anything down that she is not able to keep any Phenergan now. We will go ahead and give her prescription for Phenergan suppository. Patient verbalized understanding and agreement. Decision to Disposition Date: Oct 19, 2017 Decision to Disposition Time: 14:21 Depart Departure Latest Vital Signs Vital Signs Date Time Temp Pulse Resp B/P (MAP) Pulse Ox O2 Delivery O2 Flow Rate FiO2 10/19/17 13:44 97 14 94 10/19/17 13:30 113/64 (80) 10/19/17 12:27 98.6 Room Air Impression: Primary Impression: Gastroenteritis Condition: Improved Disposition: HOME OR SELF-CARE Referrals: ELDER MOCK MD (PCP) New Scripts Promethazine Hcl (PROMETHAZINE HCL) 25 Mg Supp.rect 25 MG RC Q8H Y for NAUSEA/VOMITING, #12 SUPP.RECT Prov: EDWAR SALGADO 10/19/17 Patient Instructions: Gastroenteritis (ED) Additional Instructions: Increase fluid intake. Clear liquid diet for the next 24-48 hours. After that you may advance diet as tolerated starting with complex carbohydrates ; rice, bread or pasta. Follow up with your primary care provider in the next week. Return to the ER if condition worsens. EDWAR SALGADO Oct 19, 2017 12:24
--- NOTE | 2017-10-19 12:41 | EKG ---
FACILITY: [facility] - [place] PATIENT NAME: GERMAIN GARCIA : [id number] MR: [id number] V: [id number] EXAM DATE: ORDERING PHYSICIAN: EDWAR SALGADO TECHNOLOGIST: RADHA Mak Reason : TACHY Blood Pressure : / mmHG Vent. Rate : 108 BPM Atrial Rate : 108 BPM P-R Int : 118 ms QRS Dur : 082 ms QT Int : 352 ms P-R-T Axes : 078 095 079 degrees QTc Int : 471 ms Sinus tachycardia Rightward axis Nonspecific ST findings inferolateral leads Borderline ECG Confirmed by SALTY ROMO ([id number]) on 10/20/2017 6:26:43 AM Referred By: STEPHANIE Confirmed By:SALTY ROMO
[2017-10-19] MEDS ORDERED: [UNRECOGNIZED DRUG - OTHER] (12:44)
[2017-10-19 12:49] LABS: PLATELET COUNT, AUTOMATED 423 K/uL (150-450)
[2017-10-19] MEDS ORDERED: PROMETHAZINE 25 MG/ML 1 ML AMP IVP ONE (13:10)
[2017-10-19 13:30] VITALS: BP 113/64
[2017-10-19] MEDS ORDERED: PROM25SU9 RC (14:21)
== END 2017-10-19 14:31 | disposition home or self-care (01) ==
LOC: ER 12:14
DX: O21.0 Mild hyperemesis gravidarum (principal); Z3A.13 13 weeks gestation of pregnancy; F15.11 Other stimulant abuse, in remission
CPT/HCPCS: 80305; 81001; 82150; 83690; 84484; 85025; 93005; 96361; 96374; 96375; 99283; J2405; J2550; J7030; 82040; 82247; 82310; 82374; 82435; 82565; 82947; 84075; 84132; 84155; 84295; 84450; 84460; 84520

== ENCOUNTER 2017-11-08 02:14 | Observation (INO) | payer MEDICAID, OTHER ==
[~2017-11-08] VITALS: Ht 160 cm; Wt 96.4 kg
[~2017-11-08 02:14] MED LIST changes: -ONDA4TAB97 PO; -OSE75 PO
[2017-11-08] MEDS ORDERED: ALBUTEROL/IPRATROPIUM 3 ML NEB NEB ONE (02:35)
[2017-11-08] MEDS ORDERED: BENZONATATE 100 MG CAP PO ONE (02:35)
[2017-11-08] MEDS ORDERED: NS(*) 0.9% 1000 ML BAG 1,000 ML IV ONE (03:15)
--- NOTE | 2017-11-08 03:29 | RADIOLOGY IMAGING REPORT ---
FACILITY: [facility] PATIENT NAME: Anusha Warren : 1985 MR: [id number] V: [id number] EXAM DATE: ORDERING PHYSICIAN: CHRISTOPHER JIMENEZ TECHNOLOGIST: Location: [facility] Patient: Anusha Warren : 1985 Visit/Account:[id number] Date of Sevice: 11/08/2017 CHEST PA AND LAT HISTORY: Cough COMPARISON: 11/14/2016 FINDINGS: Cardiomediastinal contours: Normal Lungs and pleura: Normal Bones/soft tissues: Normal Other findings: None significant IMPRESSION: 1. Normal chest Report Dictated By: Noe Tristan MD at 11/08/2017 3:23 AM Report E-Signed By: Noe Tristan MD at 11/08/2017 3:23 AM [id number]
[2017-11-08 03:48] LABS: PLATELET COUNT, AUTOMATED 308 K/uL (150-450)
--- NOTE | 2017-11-08 03:56 | ER Report ---
History and Physical Time Seen By MD: 02:19 Hx. of Stated Complaint: COUGH, SOB, WEAKNESS STARTED TODAY. HPI/ROS 31-year-old 14 weeks presents with fevers chills cough shortness of breath sensation of wheezing difficulty with air movements and no known exposures. She arrived by EMS. She is weak and fatigued and experiencing significant malaise. She reports a severe cough. Chest pain with coughing. Allergies: Coded Allergies: succinylcholine (Verified Allergy, Severe, CAN'T METABLOLIZE, 10/19/17) Family history only. Penicillins (Verified Allergy, Unknown, UNKNOWN, 10/19/17) Told as a girl. amoxicillin (Verified Allergy, Unknown, 10/19/17) erythromycin base (Verified Adverse Reaction, Mild, NAUSEA/VOMITING, ) Home Meds Active Scripts Promethazine Hcl (PROMETHAZINE HCL) 25 Mg Supp.rect, 25 MG RC Q8H Y for NAUSEA/ VOMITING, #12 SUPP.RECT Prov:EDWAR SALGADO OPERATING ROOM AIDE 10/19/17 Promethazine Hcl (PROMETHAZINE HCL) 25 Mg Tablet, 25 MG PO Q8H Y for NAUSEA/ VOMITING, #20 TAB Prov:COLT GUSTAFSON DO 10/09/17 Ondansetron (ZOFRAN ODT) 4 Mg Tab.rapdis, 4 MG PO every 6 hours Y for NAUSEA/ VOMITING, #15 TAB TAKE 1 TABLET BY MOUTH EVERY 12 HOURS Prov:COLT GUSTAFSON DO 10/09/17 Reported Medications [Cylexa] No Conflict Check 10/19/17 Hx Smoking: Yes Smoking Status: Current: Every Day Smoker Exposure to Second Hand Smoke?: Yes Hx Substance Use Disorder: Yes (etoh, meth - CLEAN 30 DAYS TODAY) Hx Alcohol Use: No Constitutional Vital Sign - Last 24 Hours 11/08/17 11/08/17 11/08/17 02:19 03:10 03:10 Temp 99.3 Pulse 120 108 Resp 28 16 B/P (MAP) 120/31 Pulse Ox 96 93 O2 Delivery Room Air Physical Exam General Appearance: The patient is alert, has no immediate need for airway protection and no signs of toxicity. Mild distress Eyes: Pupils equal and round no pallor or injection. ENT, Mouth: Mucous membranes are moist. Respiratory: There are no retractions, lungs are clear to auscultation. Cardiovascular: Regular rate and rhythm. No murmurs gallops or rubs Gastrointestinal: Abdomen is soft and non tender, no masses, bowel sounds normal. Neurological: [ ] Skin: Warm, no rashes. Diaphoretic Musculoskeletal: Neck is supple non tender. Extremities are nontender, nonswollen and have full range of motion. Otherwise negative DIFFERENTIAL DIAGNOSIS: After history and physical exam differential diagnosis was considered for influenza,, strep pharyngitis, pneumonia, dehydration, pulmonary edema, PR Medical Decision Making Data Points Result Diagram: 11/08/17 0215 11/08/17 0215 Laboratory Hematology Test 11/08/17 02:15 11/08/17 02:23 Red Blood Count 4.15 M/uL (4.17-5.56) Mean Corpuscular Volume 87.8 fL (80.0-96.0) Mean Corpuscular Hemoglobin 30.4 pg (26.0-33.0) Mean Corpuscular Hemoglobin Concent 34.6 g/dL (32.0-36.0) Red Cell Distribution Width 15.7 % (11.5-14.5) Mean Platelet Volume 7.4 fL (7.2-11.1) Neutrophils (%) (Auto) 82.8 % (39.4-72.5) Lymphocytes (%) (Auto) 11.7 % (17.6-49.6) Monocytes (%) (Auto) 5.1 % (4.1-12.4) Eosinophils (%) (Auto) 0.1 % (0.4-6.7) Basophils (%) (Auto) 0.3 % (0.3-1.4) Nucleated RBC Relative Count (auto) 0.0 /100WBC Neutrophils # (Auto) 5.4 K/uL (2.0-7.4) Lymphocytes # (Auto) 0.8 K/uL (1.3-3.6) Monocytes # (Auto) 0.3 K/uL (0.3-1.0) Eosinophils # (Auto) 0.0 K/uL (0.0-0.5) Basophils # (Auto) 0.0 K/uL (0.0-0.1) Nucleated RBC Absolute Count (auto) 0.00 K/uL Sodium Level 132 mmol/L (137-145) Potassium Level 3.7 mmol/L (3.5-5.0) Chloride Level 104 mmol/L (98-107) Carbon Dioxide Level 16 mmol/L (22-31) Blood Urea Nitrogen 6 mg/dl (7-18) Creatinine 0.60 mg/dl (0.52-1.04) Glomerular Filtration Rate Calc > 60.0 Random Glucose 92 mg/dl (75-110) Calcium Level 8.8 mg/dl (8.4-10.2) Influenza Virus Type A (PCR) Positive (NEGATIVE) Influenza Virus Type B (PCR) Negative (NEGATIVE) Group A Streptococcus Screen Negative (NEGATIVE) Chemistry Test 11/08/17 02:15 11/08/17 02:23 White Blood Count 6.5 k/uL (4.5-11.0) Red Blood Count 4.15 M/uL (4.17-5.56) Hemoglobin 12.6 g/dL (12.0-16.0) Hematocrit 36.4 % (34.0-47.0) Mean Corpuscular Volume 87.8 fL (80.0-96.0) Mean Corpuscular Hemoglobin 30.4 pg (26.0-33.0) Mean Corpuscular Hemoglobin Concent 34.6 g/dL (32.0-36.0) Red Cell Distribution Width 15.7 % (11.5-14.5) Platelet Count 308 K/uL (150-450) Mean Platelet Volume 7.4 fL (7.2-11.1) Neutrophils (%) (Auto) 82.8 % (39.4-72.5) Lymphocytes (%) (Auto) 11.7 % (17.6-49.6) Monocytes (%) (Auto) 5.1 % (4.1-12.4) Eosinophils (%) (Auto) 0.1 % (0.4-6.7) Basophils (%) (Auto) 0.3 % (0.3-1.4) Nucleated RBC Relative Count (auto) 0.0 /100WBC Neutrophils # (Auto) 5.4 K/uL (2.0-7.4) Lymphocytes # (Auto) 0.8 K/uL (1.3-3.6) Monocytes # (Auto) 0.3 K/uL (0.3-1.0) Eosinophils # (Auto) 0.0 K/uL (0.0-0.5) Basophils # (Auto) 0.0 K/uL (0.0-0.1) Nucleated RBC Absolute Count (auto) 0.00 K/uL Glomerular Filtration Rate Calc > 60.0 Calcium Level 8.8 mg/dl (8.4-10.2) Influenza Virus Type A (PCR) Positive (NEGATIVE) Influenza Virus Type B (PCR) Negative (NEGATIVE) Group A Streptococcus Screen Negative (NEGATIVE) ED Course/Re-evaluation ED Course Cough not improved with the therapy patient reports no improvement from nebulization albuterol therapy chest x-ray labs results were discussed. Plan for admission. CBC BMP and urinalysis were added for admission purposes. She appears ill from influenza A combined with state. Decision to Disposition Date: Nov 08, 2017 Decision to Disposition Time: 03:52 Depart Departure Latest Vital Signs Vital Signs Date Time Temp Pulse Resp B/P (MAP) Pulse Ox O2 Delivery O2 Flow Rate FiO2 11/08/17 03:10 93 Room Air 11/08/17 03:10 108 16 11/08/17 02:19 99.3 120/31 Impression: Primary Impression: Additional Impression: Influenza A Condition: Improved Disposition: Admitted from ER Referrals: LUCIE MACHADO DO (PCP) Problem Qualifiers CHRISTOPHER JIMENEZ MD Nov 08, 2017 03:56
[2017-11-08 04:46] VITALS: BP 129/62
[2017-11-08] MEDS ORDERED: NS(*) 0.9% 1000 ML BAG 1,000 ML IV PRN (05:05)
[2017-11-08] MEDS: ONDANSETRON 4 MG/2 ML VIAL IVP PRN ×2 (05:53→14:24)
[2017-11-08] MEDS: guaiFENesin/CODEINE 5 ML UDBTL PO PRN ×2 (05:53→13:55)
[2017-11-08 08:14] VITALS: Ht 160 cm; Wt 96.4 kg
[2017-11-08 08:46] VITALS: BP 120/59
[2017-11-08] MEDS: OSELTAMIVIR PHOS 75 MG CAP PO SCH ×2 (08:51→21:05)
--- NOTE | 2017-11-08 08:53 | History & Physical ---
History of Present Illness Chief Complaint Cough, SOB and fever History of Present Illness Mrs. Warren is a 31-year-old female with PMH of positive HIV test many years ago with CD-4 around 220 but no HIV meds were taken by the patient and h/o Bronchial Asthma. She is currently 16 weeks . She was seen by her OB/ MECHANICAL TEST TECHNICIAN and was advised to start HIV meds. She was seen by the infectious disease doctor in [place] but still in the process. She presented with fevers chills cough shortness of breath sensation of wheezing difficulty with air movements and no known exposures. She arrived by EMS. She is weak and fatigued and experiencing significant malaise. She reports a severe cough. Chest pain with coughing. ER evaluation revealed positive Influenza A. I discussed the case with the ER-MD and admitted the patient for further evaluation and management. She is feeling somewhat better and she still has significant cough. She also c/o sore throat. She has h/o Meth and alcohol use. She currently smoke cigarette. History Home Meds Active Scripts Promethazine Hcl (PROMETHAZINE HCL) 25 Mg Supp.rect, 25 MG RC Q8H Y for NAUSEA/ VOMITING, #12 SUPP.RECT Prov:EDWAR SALGADO ASSISTANT TO THE CEO 10/19/17 Promethazine Hcl (PROMETHAZINE HCL) 25 Mg Tablet, 25 MG PO Q8H Y for NAUSEA/ VOMITING, #20 TAB Prov:COLT GUSTAFSON DO 10/09/17 Ondansetron (ZOFRAN ODT) 4 Mg Tab.rapdis, 4 MG PO every 6 hours Y for NAUSEA/ VOMITING, #15 TAB TAKE 1 TABLET BY MOUTH EVERY 12 HOURS Prov:COLT GUSTAFSON DO 10/09/17 Reported Medications [Cylexa] No Conflict Check 10/19/17 Allergies: Coded Allergies: succinylcholine (Verified Allergy, Severe, CAN'T METABLOLIZE, 10/19/17) Family history only. Penicillins (Verified Allergy, Unknown, UNKNOWN, 10/19/17) Told as a girl. amoxicillin (Verified Allergy, Unknown, 10/19/17) erythromycin base (Verified Adverse Reaction, Mild, NAUSEA/VOMITING, ) Patient History: Drug addiction FATHER, , Age:49 FH: COPD (chronic obstructive pulmonary disease) FATHER, , Age:49 MOTHER, Age:49 FH: HTN (hypertension) FATHER, , Age:49 FH: depression MOTHER, Age:49 FH: rheumatoid arthritis Fibromyalgia MOTHER, Age:49 Graves' disease MOTHER, Age:49 Hx Smoking: Yes (1/2 PPD) Smoking Status: Current: Every Day Smoker Exposure to Second Hand Smoke?: Yes Caffeine Intake: Coffee, Soda Caffeine/Cups Per Day: Estimated 3 CANS A WEEK Hx Alcohol Use: No Hx Substance Use Disorder: Yes (etoh, meth - CLEAN 30 DAYS TODAY) Social Drug Use: Former Social Drugs: Marijuana, Meth Amount Of Social Drug/s Used: PT. HAS HISTORY OF METH USE. Review of Systems Constitutional: Fever, Chills, Other, No Weight Loss, No Weight Gain Neurological: Weakness, Slurred Speech, No Confusion, No Dizziness Eyes: No Vision Change ENT: Sore Throat, No Sinus Congestion, No Ear Ache, No Tinnitus Cardiovascular: No Chest Pain, No Palpitations Respiratory: Shortness of Breath, Cough, No Wheezing Gastrointestinal: Nausea, No Vomiting, No Diarrhea, No Dysphagia, No Constipation, No Early Satiety, No Abdominal Pain Genitourinary: No Dysuria, No Hematuria Musculoskeletal: Other, No Pain, No Sprain, No Strain, No Impaired Mobility Psychiatric: No Depression, No Anxiety Exam Vital Signs Vital Signs Date Time Temp Pulse Resp B/P (MAP) Pulse Ox O2 Delivery O2 Flow Rate FiO2 11/08/17 04:46 100.1 104 24 129/62 (84) 92 Room Air General Appearance: Alert, Awake, No Acute Distress, Other (low grade fever) Neuro: No Gross deficits Eyes: PERRLA ENT: Other (mild pharyngeal erythema) Neck: No Masses Cardiovascular: Normal Rhythm & Peripheral Pulses Respiratory: No Respiratory Distress GI: Abd Soft and Non-Tender, Other (obese) Extremities: Soft and Non Tender Integumentary: Skin Intact without Lesion / Mass Psych: Alert & Oriented X3, Appropriate Mood & Affect Medical Decision Making Data Points Result Diagram: 11/08/1721411/08/17214 Pre-Admit Course Medical Record Review: Yes Assessment and Plan Problems: (1) Influenza A Status: Acute Assessment & Plan: I admitted the patient in observation I will start her on Tamiflu 75mg po bid I will start IVF MS 80ml/h I will start Robitussin AC 10ml q8h (2) Bronchial asthma Status: Chronic Assessment & Plan: I will start Albuterol nebulizer treatments 14h (3) Status: Acute Assessment & Plan: I will check her test She should follow her SENIOR FRONT END ENGINEER JASMYN (4) HIV (human immunodeficiency virus infection) Status: Chronic Assessment & Plan: According to the patient she was diagnosed HIV long time ago with low CD-4counts. I will check het HIV test and CD-4 counts today I advised her to see infectious doctor for HIV meds. Central Venous Access Medical Necessity for Access: IV Access Time Spent on Plan of Care: < 30 min Copies to: LUCIE MACHADO DO Venous Thromboembolism VTE Risk Physician Assess for VTE Risk: Yes Patient's VTE Risk: Low VTE Diagnostic Test 2 Days Prior to Admit: No Antithrombotics Is Pt On Any Antithrombotics?: No Exam Sepsis Risk: Possible Sepsis Risk NESHA OCHOA MD Nov 08, 2017 08:52
[2017-11-08] MEDS: ALBUTEROL 2.5 MG/3 ML NEB NEB SCH ×4 (09:14→20:47)
[2017-11-08] MEDS: BENZONATATE 100 MG CAP PO PRN ×2 (11:44→21:05)
[2017-11-08 14:14] VITALS: BP 107/56
[2017-11-08] MEDS: ACETAMINOPHEN 325 MG TAB PO PRN ×2 (14:23→21:05)
[2017-11-08 18:28] VITALS: BP 117/71
[2017-11-08] MEDS ORDERED: PROM-110 PO (19:07)
[2017-11-08] MEDS ORDERED: ONDA4TAB97 PO (19:07)
[2017-11-08] MEDS ORDERED: CITA-156 PO (19:07)
[2017-11-09 02:40] VITALS: BP 108/69
[2017-11-09] MEDS: guaiFENesin/CODEINE 5 ML UDBTL PO PRN ×3 (03:02→20:19)
[2017-11-09] MEDS: ACETAMINOPHEN 325 MG TAB PO PRN ×3 (03:02→18:21)
[2017-11-09] MEDS: ALBUTEROL 2.5 MG/3 ML NEB NEB SCH ×5 (05:21→22:11)
[2017-11-09 07:19] VITALS: BP 100/56
[2017-11-09] MEDS: BENZONATATE 100 MG CAP PO PRN ×2 (08:24→18:21)
[2017-11-09] MEDS: OSELTAMIVIR PHOS 75 MG CAP PO SCH ×2 (08:24→20:18)
[2017-11-09] MEDS: ONDANSETRON 4 MG/2 ML VIAL IVP PRN ×2 (11:22→22:03)
[2017-11-09 11:23] VITALS: BP 99/55
--- NOTE | 2017-11-09 13:51 | Hospitalist Progress Note ---
Subjective Progress Notes Subjective She reports feeling improved "now that my fever is down". Physical Exam Vital Signs Date Time Temp Pulse Resp B/P (MAP) Pulse Ox O2 Delivery O2 Flow Rate FiO2 11/09/17 11:23 96.9 88 16 99/55 (70) 95 Room Air 11/09/17 07:19 0.5 Intake and Output 11/10/17 07:01 Intake Total 720 ml Balance 720 ml Intake Oral 720 ml # Voids 1 General Appearance: Alert, Awake Neuro: No Gross deficits Cardiovascular: Regular Rate and Rhythm Respiratory: Other (scattered rhonchi/no rales or wheezes) Extremities: Warm, Perfused Psych: Alert & Oriented X3 Result Diagram: 11/08/17 0215 11/08/17 1600 Assessment and Plan Problems: (1) Influenza A Status: Acute Assessment & Plan: She appears improved. Currently on Tamiflu 75mg po bid. Will continue IV fluids and symptomatic therapy as well. (2) Status: Acute Assessment & Plan: Her test is positive. She is currently at approximately 16 weeks. Will discuss with her RESTAURANT RECRUITER (Dr. Tompkins/Alex). She will need follow up as soon as possible. (3) HIV (human immunodeficiency virus infection) Status: Chronic Assessment & Plan: According to the patient she was diagnosed HIV "a long time ago" and had a low CD-4 count this past summer. She is not currently on ART, but has seen ID and is waiting for her RESTAURANT RECRUITER to discuss her case with ID. She believes they will be starting ART soon. (4) Bronchial asthma Status: Chronic Assessment & Plan: She is currently on Albuterol nebulizer treatments as needed. Central Venous Access Medical Necessity for Access: IV Access Exam Sepsis Risk: No Definite Risk SALTY ROMO MD Nov 09, 2017 13:51
[2017-11-09 14:40] VITALS: BP_SYST 108; BP_SYST 99; BP_DIAS 55
[2017-11-09 19:10] VITALS: BP 102/71
[2017-11-10 00:09] VITALS: BP 95/66
[2017-11-10 03:12] VITALS: BP 113/51
[2017-11-10] MEDS: ALBUTEROL 2.5 MG/3 ML NEB NEB SCH ×3 (04:26→13:02)
[2017-11-10 06:04] LABS: PLATELET COUNT, AUTOMATED 251 K/uL (150-450)
[2017-11-10 07:17] VITALS: BP 86/60
[2017-11-10 07:39] VITALS: BP 99/56
[2017-11-10] MEDS: guaiFENesin/CODEINE 5 ML UDBTL PO PRN (07:40)
[2017-11-10] MEDS: BENZONATATE 100 MG CAP PO PRN (07:40)
[2017-11-10] MEDS: ONDANSETRON 4 MG/2 ML VIAL IVP PRN (07:41)
[2017-11-10] MEDS: ACETAMINOPHEN 325 MG TAB PO PRN (07:41)
[2017-11-10] MEDS: OSELTAMIVIR PHOS 75 MG CAP PO SCH (08:34)
[2017-11-10] MEDS ORDERED: OSE75 PO (11:44)
[2017-11-10 11:59] VITALS: BP 95/51
--- NOTE | 2017-11-10 13:10 | Hospitalist Depart ---
Discharge Summary Reason for Hosp/Final Diag: (1) Influenza A Status: Acute Hospital Course & Plan: Mrs. Warren is a 31-year-old female with PMH of positive HIV test many years ago with CD-4 around 220 but no HIV meds were taken by the patient and h/o Bronchial Asthma. She is currently 16 weeks . She was seen by her SALES AND MARKETING ADMINISTRATOR and was advised to start HIV meds. She was seen by the infectious disease doctor in [place] but still in the process. She presented with fevers chills cough shortness of breath sensation of wheezing difficulty with air movements and no known exposures. She arrived by EMS. She is weak and fatigued and experiencing significant malaise. She reports a severe cough. Chest pain with coughing. ER evaluation revealed positive Influenza A. I discussed the case with the ER-MD and admitted the patient for further evaluation and management. She is feeling somewhat better and she still has significant cough. She also c/o sore throat. She has h/o Meth and alcohol use. She currently smoke cigarette. 11/09: She appears improved. Currently on Tamiflu 75mg po bid. Will continue IV fluids and symptomatic therapy as well. 11/10: She is doing much better and has minimal cough. She wants to go home today. She is afebrile and hemodynamically and medically stable. Her WBC are 2200 today and her last CD-4 counts were 218 and she is HIV positive with 16 weeks I would highly suggest her to follow with her SALES AND MARKETING ADMINISTRATOR and infectious disease doctotor JASMYN. (2) Status: Acute Hospital Course & Plan: Her test is positive. She is currently at approximately 16 weeks. Will discuss with her SALES AND MARKETING ADMINISTRATOR (Dr. Tompkins/Alex). She will need follow up as soon as possible. 11/10: She is being d/c'd today and she will follow Dr. Bundy in 1 week. (3) HIV (human immunodeficiency virus infection) Status: Chronic Hospital Course & Plan: According to the patient she was diagnosed HIV "a long time ago" and had a low CD-4 count this past summer. She is not currently on ART, but has seen ID and is waiting for her SALES AND MARKETING ADMINISTRATOR to discuss her case with ID. She believes they will be starting ART soon. 11/10: She will follow the ID JASMYN (4) Bronchial asthma Status: Chronic Hospital Course & Plan: She is currently on Albuterol nebulizer treatments as needed. Departure Weight (Pounds): 212 Weight (Ounces): 9.0 Result Diagram: 11/10/1751911/10/17519 Condition: Improved Discharge: Home, Self Care Time Spent: < 30 min Discharge Instructions Home Meds Active Scripts Oseltamivir Phosphate (TAMIFLU) 75 Mg Cap, 75 MG PO BID for 4 Days, #8 CAP Prov:NESHA OCHOA MD 11/10/17 Reported Medications Citalopram Hydrobromide (CELEXA) 20 Mg Tablet, PO QDAY, #5 TAB 11/08/17 Promethazine Hcl (PROMETHAZINE HCL) 25 Mg Tablet, 25 MG PO, TAB 11/08/17 Ondansetron Hcl (ZOFRAN) 4 Mg Tablet, 4 MG PO, TAB 11/08/17 Discontinued Reported Medications [Cylexa] No Conflict Check 10/19/17 Discontinued Scripts Promethazine Hcl (PROMETHAZINE HCL) 25 Mg Supp.rect, 25 MG RC Q8H Y for NAUSEA/ VOMITING, #12 SUPP.RECT Prov:EDWAR SALGADO CARPET LOOM FIXER 10/19/17 Promethazine Hcl (PROMETHAZINE HCL) 25 Mg Tablet, 25 MG PO Q8H Y for NAUSEA/ VOMITING, #20 TAB Prov:COLT GUSTAFSON DO 10/09/17 Ondansetron (ZOFRAN ODT) 4 Mg Tab.rapdis, 4 MG PO every 6 hours Y for NAUSEA/ VOMITING, #15 TAB TAKE 1 TABLET BY MOUTH EVERY 12 HOURS Prov:COLT GUTSAFSON DO 10/09/17 Diet: Regular Activity: As Tolerated Special Instructions: Follow up with your primary care provider in the next 7-10 days Copies to: ELDER MOCK MD; HANK BUNDY MD Venous Thromboembolism Antithrombotics Is Pt On Any Antithrombotics?: No NESHA OCHOA MD Nov 10, 2017 13:10
== END 2017-11-10 11:32 | disposition home or self-care (01) ==
LOC: ER 02:28 → INTOOBSV 04:05 → MED 04:05
PROVIDERS: ADMIT Specialist; ATTEND Specialist
DX: O98.711 Human immunodeficiency virus [HIV] disease complicating pregnancy, first trimester (principal); J09.X2 Influenza due to identified novel influenza A virus with other respiratory manifestations; Z3A.14 14 weeks gestation of pregnancy; J45.998 Other asthma; F17.210 Nicotine dependence, cigarettes, uncomplicated
CPT/HCPCS: 36415; 71046; 81001; 84703; 85025; 86361; 86689; 87081; 87502; 87880; 88184; 94640; 96360; 99285; G0378; J2405; J7030; J7613; J7620; 82040; 82247; 82310; 82374; 82435; 82565; 82947; 84075; 84132; 84155; 84295; 84450; 84460; 84520

== ENCOUNTER → 2017-11-08 | Outpatient (CLI) | payer SELFPAY ==
[~2017-11-08] MED LIST changes: +ONDA4TAB97 PO; +OSE75 PO; +PROM25SU9 RC; +[UNRECOGNIZED DRUG - OTHER]
[2017-11-08 08:14] VITALS: BMI 37.5
== END ==
LOC: AMB 01:59
PROVIDERS: ATTEND Nurse Practitioner
DX: R05 Cough (principal); R11.10 Vomiting, unspecified; R50.9 Fever, unspecified; Z3A.16 16 weeks gestation of pregnancy
CPT/HCPCS: A0425; A0427

== ENCOUNTER 2018-01-26 17:05 | Outpatient (CLI) | payer MEDICAID ==
[~2018-01-26] VITALS: Ht 153.2 cm; Wt 105.7 kg
[~2018-01-26 17:05] MED LIST changes: +APAP/HYDROCODONE 325/5 TAB PO SCH; +ONDA4TAB97 PO; +OSE75 PO
[2018-01-26 17:25] VITALS: BP 122/66; Ht 153.2 cm; Wt 105.7 kg
[2018-01-26] MEDS ORDERED: APAP/HYDROCODONE 325/5 TAB PO PRN (18:05)
[2018-01-26] MEDS ORDERED: LR(*) 1000 ML BAG 1,000 ML IV ONE (18:05)
[2018-01-26] MEDS ORDERED: ONDANSETRON 4 MG/2 ML VIAL IVP ONE (18:05)
[2018-01-26] MEDS ORDERED: DOLU50TA PO (19:36)
[2018-01-26] MEDS ORDERED: EMTR1TAB5 PO (19:36)
[2018-01-26] MEDS ORDERED: OMEP-137 PO (19:36)
[2018-01-26] MEDS ORDERED: ALB6.7R INH (19:36)
== END 2018-01-26 20:05 | disposition home or self-care (01) ==
LOC: OB 17:05 → L&D 17:05 → UNDOADMOB 17:05 → OB 17:05 → UNDODISOB 20:05 → L&D 20:05 → EDSTATUS 01-27 11:14
PROVIDERS: ATTEND Student in an Organized Health Care Education/Training Program
DX: O21.2 Late vomiting of pregnancy (principal); Z3A.27 27 weeks gestation of pregnancy
CPT/HCPCS: 81001; G0463; J2405; J7120; 99213; G0378; G0379

== ENCOUNTER 2018-02-22 15:56 | Outpatient (CLI) | payer SELFPAY ==
[~2018-02-22] VITALS: Ht 153.2 cm; Wt 109.3 kg
[~2018-02-22 15:56] MED LIST changes: -APAP/HYDROCODONE 325/5 TAB PO SCH; +DOLU50TA PO; +EMTR1TAB5 PO; +OMEP-137 PO
[2018-02-22 16:19] VITALS: BP 129/58; Ht 153.2 cm; Wt 109.3 kg
--- NOTE | 2018-02-22 18:50 | General Surgery Consultation ---
History of Present Illness Requesting Physician Dr. Johnson, OB Reason for Consult Umbilical hernia Chief Complaint Abdominal pain History of Present Illness 32-year-old female who is currently at 32 weeks estimated gestational age in her 5th is admitted to the family care unit with an umbilical hernia that is causing her quite a bit of pain. She 1st noticed it for a couple of months ago. It hurts every time she lifts anything or coughs. She never before had any sort of hernia repair. It wasn't a problem during previous pregnancies. She is due to have a delivery by section on April 07. 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 (9) HIV (human immunodeficiency virus infection) Status: Chronic (10) Bronchial asthma Status: Chronic Home Meds Reported Medications Albuterol Sulfate (PROVENTIL HFA) 6.7 Gm Inh, 1-2 PUFF INH 3-4XD for WHEEZING, INH 01/26/18 Emtricitabine/Tenofov Alafenam (Descovy 200-25 mg Tablet) 200 Mg-25 Mg Tablet, 200 MG PO DAILY 01/26/18 Dolutegravir Sodium (TIVICAY) 50 Mg Tablet, 50 MG PO DAILY 01/26/18 Omeprazole (OMEPRAZOLE) 20 Mg Tablet.dr, 20 MG PO QDAY, TAB 01/26/18 Citalopram Hydrobromide (CELEXA) 20 Mg Tablet, 40 MG PO QDAY, #5 TAB 11/08/17 Promethazine Hcl (PROMETHAZINE HCL) 25 Mg Tablet, 25 MG PO Y for NAUSEA/VOMITING , TAB 11/08/17 Ondansetron Hcl (ZOFRAN) 4 Mg Tablet, 4 MG PO, TAB 11/08/17 Allergies: Coded Allergies: succinylcholine (Verified Allergy, Severe, CAN'T METABLOLIZE, 10/19/17) Family history only. Penicillins (Verified Allergy, Unknown, UNKNOWN, 10/19/17) Told as a girl. amoxicillin (Verified Allergy, Unknown, 10/19/17) erythromycin base (Verified Adverse Reaction, Mild, NAUSEA/VOMITING, ) Family History: Drug addiction FATHER, , Age:49 FH: COPD (chronic obstructive pulmonary disease) FATHER, , Age:49 MOTHER, Age:49 FH: HTN (hypertension) FATHER, , Age:49 FH: depression MOTHER, Age:49 FH: rheumatoid arthritis Fibromyalgia MOTHER, Age:49 Graves' disease MOTHER, Age:49 Review of Systems All Systems Reviewed/Normal: Yes, Except as Noted Gastrointestinal: Abdominal Pain Exam Vital Signs Vital Signs Date Time Temp Pulse Resp B/P (MAP) Pulse Ox O2 Delivery O2 Flow Rate FiO2 02/22/18 16:19 99.1 77 22 129/58 (81) 94 Room Air General Appearance: Alert, Awake, No Acute Distress, Afebrile Neuro: No Gross deficits Eyes: PERRLA GI: Other (soft, gravid uterus with fundus and epigastrium. Tenderness to palpation around her umbilicus with an obvious fascial defect. There is no bulge at the time of my exam. The area is soft.) Extremities: Warm, Perfused Assessment and Plan Problems: (1) Umbilical hernia Status: Chronic Assessment & Plan: Although the hernia is tender to palpation and causes her pain with straining it is not out at the time of my exam although I can feel the fascial defect. The area is soft. The risk of a problem due to this hernia is very low. I have recommended repair of the hernia after her is completed and her abdominal wall returns to its creek state. I would not recommend any sort of surgical intervention during her . The earliest we could intervene really would be at the time of section but I wouldn' t place mesh at that time due to risk of infection of the mesh. Ideally, we let her recover from her and repair this with mesh. In the meantime, she should use counter pressure on her umbilicus when she is coughing or straining. She can continue to use Tylenol although she reports that this is suboptimal for controlling her pain. She has tolerated Lortab in the past and wonders if this would help although she does admit to having a substance abuse issue. I think Lortab is acceptable but have told her that she should minimize its use and try to use it only once or twice a day if possible. She can follow-up with me as needed when she is ready to proceed with repair but feel free to consult me again sooner if there are continued surgical issues that I might help out with during her . Central Venous Access Medical Necessity for Access: IV Access Condition Stable. Time Spent: < 30 min Venous Thromboembolism VTE Risk Physician Assess for VTE Risk: Yes Patient's VTE Risk: Low VTE Diagnostic Test 2 Days Prior to Admit: No Antithrombotics Is Pt On Any Antithrombotics?: No Problem Qualifiers (1) Umbilical hernia: Obstruction and gangrene presence: without obstruction or gangrene Qualified Codes: K42.9 - Umbilical hernia without obstruction or gangrene TYE GUO MD February 22, 2018 18:50
[2018-02-22] MEDS ORDERED: LOR5/325 PO (19:17)
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
== END 2018-02-22 19:29 | disposition home or self-care (01) ==
LOC: UNDOADMIN 15:56 → OB 15:56 → L&D 15:56 → OB 15:56 → UNDODISIN 19:29 → L&D 19:29 → EDSTATUS 02-24 10:36
PROVIDERS: ATTEND Obstetrics & Gynecology
DX: O26.893 Other specified pregnancy related conditions, third trimester (principal); O98.713 Human immunodeficiency virus [HIV] disease complicating pregnancy, third trimester; Z3A.31 31 weeks gestation of pregnancy
CPT/HCPCS: 59025; 99213

== ENCOUNTER 2018-04-07 05:13 | Inpatient (IN) | payer MEDICARE, MEDICAID ==
[2018-04-07] VITALS (20 sets, daily range): BP systolic 91–137; BP diastolic 48–79; Ht 162.6 cm; Wt 114.3 kg
[~2018-04-07] VITALS: Ht 162.6 cm; Wt 114.3 kg
[~2018-04-07 05:13] MED LIST changes: +EMTR1TAB4; +PNV1COMB5
[2018-04-07] MEDS ORDERED: METOCLOPRAMIDE 10 MG/2 ML SDV IVP ONE (05:15)
[2018-04-07] MEDS ORDERED: DLR(*) 1000 ML BAG 1,000 ML IV PRN (05:15)
[2018-04-07] MEDS ORDERED: FAMOTIDINE 20 MG/50 ML PREMIX IVPB ONE (05:15)
[2018-04-07] MEDS ORDERED: cefOXitin/DEX(*) 2GM/50ML PREM 50 ML IVPB ONE (05:30)
[2018-04-07] MEDS: LR(*) 1000 ML BAG 1,000 ML IV SCH ×2 (05:45→06:03)
[2018-04-07] MEDS ORDERED: ONDANSETRON 4 MG/2 ML VIAL IVP ONE (05:45)
[2018-04-07 05:49] LABS: PLATELET COUNT, AUTOMATED 322 K/uL (150-450)
[2018-04-07] MEDS ORDERED: OXYTOCIN 10 UNIT/ML SDV ONE ×3 (06:46)
[2018-04-07] MEDS ORDERED: DEXAMETHASONE SOD 4 MG/ML VIAL ONE ×2 (06:47)
[2018-04-07] MEDS ORDERED: MORPHINE PF 5 MG/10 ML AMP ONE (06:48)
[2018-04-07] MEDS ORDERED: fentaNYL CITR 100 MCG/2 ML AMP ONE (06:48)
[2018-04-07] MEDS ORDERED: DEXTR ONE (07:34)
[2018-04-07] MEDS ORDERED: BUPIV ONE (07:34)
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
[2018-04-07] MEDS ORDERED: OXYTOCIN 30 UNIT/D5LR 500 ML 500 ML IV PRN (09:18)
[2018-04-07] MEDS ORDERED: ZOLPIDEM TARTRATE 5 MG TAB PO PRN (09:20)
[2018-04-07] MEDS ORDERED: MEASLES,MUMP,RUBELLA VAC 0.5ML SUBQ ONE (09:20)
[2018-04-07] MEDS ORDERED: INFLUENZA VIRUS VAC 0.5 ML SYR IM ONE (09:20)
[2018-04-07] MEDS ORDERED: PROMETHAZINE 25 MG/ML 1 ML AMP IVP PRN (09:20)
[2018-04-07] MEDS ORDERED: LANOLIN OINT 7 GM TUBE TP PRN (09:20)
[2018-04-07] MEDS ORDERED: ONDANSETRON 4 MG/2 ML VIAL IV PRN (09:20)
[2018-04-07] MEDS ORDERED: ACETAMINOPHEN 325 MG TAB PO PRN (09:20)
[2018-04-07] MEDS ORDERED: SIMETHICONE 80 MG CHEW CHEW PRN (09:20)
[2018-04-07] MEDS ORDERED: DIPHTH/TETANUS/ACEL. PERTUSSIS IM ONLY ONE (09:20)
--- NOTE | 2018-04-07 09:37 | Post Operative Note ---
Operative Note - DIRECT CARE PROFESSIONAL Operative Day Date: Apr 07, 2018 Time: 09:29 Physicians Surgeon: Alex De Icer: Kamryn Roman Anesthesia: spinal Diagnosis Pre-Op Diagnosis: Previous c/s x 1 HIV positive 38 weeks Post-Op Diagnosis: same Procedure Findings: female, vtx Procedure(s): RLTCS Specimen Removed:(Maybe N/A): #[id number] Complications: none Fluids Fluids: IV crystalloid Estimated Blood Loss: 700 ml Dictated Date OP Note Dictated: Apr 07, 2018 Time OP Note Dictated: 09:32 Copies to: HANK BUNDY MD, TRAVIS MD Apr 07, 2018 09:37
--- NOTE | 2018-04-07 09:46 | Anesthesia OB Pre-Anes Eval ---
History of Present Illness EDC: Apr 22, 2018 : 5 Para: 3 Result Diagram: 04/07/18 0540 Height (Inches): 64.00 Weight (Pounds): 252 BMI Calculated: 43.25 Past Medical History Medical History: asthma, other (HIV) Surgical History: other (Bladder and wisdom teeth) Previous Anesthesia: general, epidural Attended Childbirth Classes?: No Hx Anesthesia Reactions: Yes (low blood pressure) Hx Family Anesthesia Reaction: Yes (Uncle with sux reaction. appears to be prolonged block.) Past Complications: obesity Home Meds Active Scripts Hydrocodone Bit/Acetaminophen (HYDROCODON-ACETAMINOPHEN 5-325) 1 Each Tablet, 1 EACH PO Q6-8H Y for PAIN, #20 TAB 0 Refills Prov:HANK BUNDY MD 02/22/18 Reported Medications Emtricitab/Rilpiviri/Tenof Ala (Odefsey Tablet) 200 Mg-25 Mg-25 Mg Tablet, QDAY 03/29/18 Pnv #116/Iron Fumarate/Fa/Dha (EXPECTA COMBO PACK) 1 Each Combo..pkg, 1 03/29/18 Albuterol Sulfate (PROVENTIL HFA) 6.7 Gm Inh, 1-2 PUFF INH 3-4XD for WHEEZING, INH 01/26/18 Omeprazole (OMEPRAZOLE) 20 Mg Tablet.dr, 20 MG PO QDAY, TAB 01/26/18 Citalopram Hydrobromide (CELEXA) 20 Mg Tablet, 40 MG PO QDAY, #5 TAB 11/08/17 Ondansetron Hcl (ZOFRAN) 4 Mg Tablet, 4 MG PO, TAB 11/08/17 Allergies: Coded Allergies: succinylcholine (Verified Allergy, Severe, CAN'T METABLOLIZE, 10/19/17) Family history only. Penicillins (Verified Allergy, Unknown, UNKNOWN, 10/19/17) Told as a girl. amoxicillin (Verified Allergy, Unknown, 10/19/17) erythromycin base (Verified Adverse Reaction, Mild, NAUSEA/VOMITING, ) Anesthesia OB ROS Pulmonary: asthma Airway Class: lll GI ROS: NPO Last Solids Date: Apr 06, 2018 Last Solids Time: 23:00 Endocrine ROS: other (HIV positive) ASA Classification: 3 Assessment and Plan Anesthesia Plan: SAB Assessment She accepts risks and complications. consent signed. Anesthesia Stop Day: Apr 07, 2018 Anesthesia Stop Time: 07:00 JENNIFER BELL CRNA Apr 07, 2018 09:46
[2018-04-07] MEDS: KETOROLAC 30 MG/ML VIAL IVP SCH ×3 (09:58→21:34)
[2018-04-07] MEDS ORDERED: diphenhydrAMINE 25 MG CAP PO ONE (10:45)
[2018-04-07] MEDS ORDERED: NALBUPHINE HCL 10 MG/ML AMP IVP ONE (10:45)
[2018-04-07] MEDS: NICOTINE 14 MG/24 HR PATCH TD SCH (11:23)
[2018-04-07] MEDS: APAP/HYDROCODONE 325/7.5 TAB PO PRN ×2 (12:58→17:49)
[2018-04-07] MEDS ORDERED: LR 500 ML BAG 500 ML IV ONE (14:38)
--- NOTE | 2018-04-07 14:45 | OPERATIVE REPORT 1 ---
EVENT DATE: April 07, 2018 SURGEON: Eder Johnson MD ANESTHESIA: Spinal, Hermilo Claudio CRNA VENEER GLUER: Kamryn Roman PA-C PREOPERATIVE DIAGNOSES 1. Previous section times one, 38 weeks intrauterine . 2. Human immunodeficiency virus positive. POSTOPERATIVE DIAGNOSES 1. Previous section times one, 38 weeks intrauterine . 2. Human immunodeficiency virus positive. PROCEDURE PERFORMED Repeat low transverse section via Pfannenstiel skin incision. ESTIMATED BLOOD LOSS 700 mL FLUIDS IV Crystalloid. FINDINGS Female , cephalic. Normal-appearing uterus, tubes, and ovaries. PROCEDURE IN DETAIL The patient was brought into the operating room with a working IV. Spinal anesthetic was administered. She was set up on the operating table in the dorsal supine position with a leftward tilt and then prepped and draped in the usual sterile fashion. Using a knife, a Pfannenstiel skin incision was made, carried through to the underlying rectus fascia. This was nicked in the midline and extended laterally with the Landon scissors. The rectus muscles were dissected off superiorly and inferiorly and then in the midline. The peritoneum was entered sharply and extended superiorly and inferiorly, taking care to avoid injury to the underlying bladder. This exposed the lower uterine segment of the uterus. Vesicouterine peritoneum was entered sharply and extended laterally. Bladder flap was created digitally. Bladder blade was inserted, and this exposed the lower uterine segment which received a low transverse incision with the scalpel and carried through to the intra-amniotic space. There was clear fluid upon amniotomy. The incision was extended laterally with blunt lateral traction. A hand was inserted. The 's head was elevated through the incision. Fundal pressure was applied. The infant's head delivered atraumatically. Mouth and nose were bulb suctioned. Further fundal pressure effected delivery of the remainder of the infant without difficulty. Mouth and nose were bulb suctioned. The cord was clamped and cut, and the was passed to the awaiting resuscitation team. Cord sample was obtained. The placenta was delivered manually. Uterus was exteriorized and cleared of clots and debris. Trevizo clamps were placed for hemostasis while the uterine repair was performed with a #1 Monocryl in a running locking stitch. A second suture of the same type was used to imbricate the first layer , completing a two-layer closure. Uterus was returned to the abdomen, and bilateral pelvic gutters were irrigated and swept clear of clots and debris. The parietal peritoneum was repaired using 3-0 Vicryl in a running nonlocking stitch. Rectus muscles were reapproximated in the midline with the same stitch. The rectus muscle bellies were irrigated and swept clear of clots and debris. Cautery was applied to a few capillary bleeders. The rectus fascia was repaired using an 0 Vicryl in running nonlocking stitch. Subcuticular space was irrigated, swept clear of clots and debris. Cautery was utilized for hemostasis. The was closed with a 3-0 Vicryl Plus in a running nonlocking stitch. Skin was repaired with simple subdermal 4-0 Monocryl and covered with Dermabond skin adhesive. She tolerated the procedure well. Sponge, lap, needle , and instrument counts were all correct times three. She was taken to recovery in stable condition. JEREMY
--- NOTE | 2018-04-07 14:57 | Anesthesia Post Eval Note ---
Anesthesia Post Eval Note Pt able to participate in Eval: Yes Cardiovascular Status: Satisfactory Respiratory Status: Satisfactory Pain Managment: Satisfactory PO Nausea/Vomiting: Satisfactory Temperature Management: Satisfactory Mental Status: Satisfactory Post-Op Hydration Status: Unsatisfactory Anesthesia Type: SAB Anesthesia Tolerance: receiving Fluid bolus. JENNIFER BELL CRNA Apr 07, 2018 14:57
[2018-04-07] MEDS: DLR(*) 1000 ML BAG 1,000 ML IV PRN (15:43)
[2018-04-07] MEDS: DOCUSATE CALCIUM 240 MG CAP PO SCH (21:34)
[2018-04-07] MEDS: [UNRECOGNIZED DRUG - OTHER] PO SCH (21:34)
[2018-04-07] MEDS: FAMOTIDINE 20 MG TAB PO SCH (21:34)
[2018-04-07] MEDS ORDERED: FUROSEMIDE 20 MG TAB PO PRN (22:00)
[2018-04-08 00:20] VITALS: BP 107/73
[2018-04-08] MEDS: DLR(*) 1000 ML BAG 1,000 ML IV PRN (01:14)
[2018-04-08] MEDS: APAP/HYDROCODONE 325/7.5 TAB PO PRN ×5 (01:14→22:08)
[2018-04-08] MEDS: IBUPROFEN 800 MG TAB PO SCH ×3 (03:43→21:09)
[2018-04-08 07:12] LABS: PLATELET COUNT, AUTOMATED 307 K/uL (150-450)
[2018-04-08] MEDS: NICOTINE 14 MG/24 HR PATCH TD SCH (09:00)
--- NOTE | 2018-04-08 09:46 | OB/GYN Progress Note ---
OB Subjective Progress Notes Subjective Doing good this morning. Reports pain controlled with [place]. Ambulatory out of hospital to smoke. Tolerating regular diet. Voiding with out any difficulty. Lochia appropriate. Bottle feeding. GI: NEG Nausea, NEG Vomiting, NEG Flatus, NEG Bowel Movement : Voiding Well, Vaginal Bleeding, Moderate Pain: Mild, Tolerating PO Pain Meds Neurological: No Headache, No Other Eyes: No Visual Disturbances OB Objective Physical Exam Vital Signs Date Time Temp Pulse Resp B/P (MAP) Pulse Ox O2 Delivery O2 Flow Rate FiO2 04/08/18 03:44 97.8 60 18 93 Room Air 04/07/18 10:30 1.0 Intake and Output 04/09/18 07:00 Output Total 150 ml Balance -150 ml Output Urine Total 150 ml # Voids 1 General Appearance: Alert/Awake/No Acute Distress Neurological: No Gross deficits Eyes: Normal Extraocular Movement & Vison, PERRLA ENT: Normal Cardiovascular: Normal Rhythm & Peripheral Pulses Respiratory: No Respiratory Distress, Clear to Auscultation Abdomen: Soft, Non-Tender, Non-Distended : Normal Musculoskeletal: No Weakness/Pain Extremities: No Cyanosis,Clubbing or Edema Integumentary: Skin Intact without Lesions or Rash Psychological: Alert & Oriented X3, Appropriate Mood & Affect Result Diagram: 04/08/18 0649 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 Plan to discharge tomorrow if is discharged. Discussed pain medications and being discharged with certain medications and my concern secondary to her history of Methamphetamine addiction. LUCIE MACHADO DO Apr 08, 2018 09:46
[2018-04-08 10:35] VITALS: BP 110/63
[2018-04-08] MEDS: DOCUSATE CALCIUM 240 MG CAP PO SCH ×2 (10:43→21:09)
[2018-04-08] MEDS: FAMOTIDINE 20 MG TAB PO SCH ×2 (10:43→21:09)
[2018-04-08] MEDS ORDERED: PATCH REMOVAL 1 EA TP SCH (11:00)
[2018-04-08 15:30] VITALS: BP 119/61
[2018-04-08 19:30] VITALS: BP 128/69
[2018-04-08] MEDS: [UNRECOGNIZED DRUG - OTHER] PO SCH (21:10)
[2018-04-09 04:30] VITALS: BP 113/65
[2018-04-09] MEDS: APAP/HYDROCODONE 325/7.5 TAB PO PRN ×2 (04:44→09:16)
[2018-04-09] MEDS: IBUPROFEN 800 MG TAB PO SCH (06:44)
[2018-04-09] MEDS: NICOTINE 14 MG/24 HR PATCH TD SCH (09:00)
--- NOTE | 2018-04-09 09:03 | OB/GYN Progress Note ---
OB Subjective Progress Notes Subjective Pt doing good this morning. Tolerating regular diet. Ambulatory. Voiding with out any difficulty. Not secondary to HIV status. Lochia appropriate. GI: NEG Nausea, NEG Vomiting, NEG Flatus, NEG Bowel Movement : Voiding Well, Vaginal Bleeding, Scant Pain: Mild, Tolerating PO Pain Meds Neurological: No Headache, No Other Eyes: No Visual Disturbances OB Objective Physical Exam Vital Signs Date Time Temp Pulse Resp B/P (MAP) Pulse Ox O2 Delivery O2 Flow Rate FiO2 04/09/18 04:30 98.2 65 20 113/65 (81) 95 Room Air 04/07/18 10:30 1.0 General Appearance: Alert/Awake/No Acute Distress Neurological: No Gross deficits Eyes: Normal Extraocular Movement & Vison, PERRLA ENT: Normal Cardiovascular: Normal Rhythm & Peripheral Pulses Respiratory: No Respiratory Distress, Clear to Auscultation Abdomen: Soft, Non-Tender, Non-Distended, Fundus Firm Incision: Clean, Dry, Intact, Dermabond : Normal Musculoskeletal: No Weakness/Pain Extremities: No Cyanosis,Clubbing or Edema Integumentary: Skin Intact without Lesions or Rash Psychological: Alert & Oriented X3, Appropriate Mood & Affect Result Diagram: 04/08/18 0649 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 Follow up with Dr. Perez in 2 weeks. LUCIE MACHADO DO Apr 09, 2018 09:03
[2018-04-09] MEDS ORDERED: IBUP800T37 PO (09:05)
[2018-04-09] MEDS ORDERED: Acetaminophen/Hydrocodone PO (09:05)
--- NOTE | 2018-04-09 09:11 | OB/GYN Discharge Summary ---
Discharge Summary Reason for Hosp/Final Diag: (1) Status post delivery Status: Resolved Hospital Course & Plan: Plan for discharge home today. Discussed patient's HIV status and the absolute requirement to not breastfeed her infant and the need to continue the infants medications as directed. Pt presented for a scheduled RLTCS (See operative note for details of procedure). Pt remained in house for 2 days post operatively and was discharged home. [place] Vital Signs Vital Signs Date Time Temp Pulse Resp B/P (MAP) Pulse Ox O2 Delivery O2 Flow Rate FiO2 04/09/18 04:30 98.2 65 20 113/65 (81) 95 Room Air 04/07/18 10:30 1.0 Weight (Pounds): 252 Weight (Ounces): 9.0 Result Diagram: 04/08/1849 Condition: Improved Discharge: Home Home Meds Active Scripts Ibuprofen (IBUPROFEN) 800 Mg Tablet, 800 MG PO Q8H@0700,1500,2300, #30 TAB 0 Refills Prov:LUCIE MACHADO DO 04/09/18 [Apap/Hydrocodone 325/7.5 Tab] 7.5 MG/325 MG TAB No Conflict Check, 1-2 EACH PO Q4-6H Y for PAIN, #40 TAB 0 Refills Prov:LUCIE MACHADO DO 04/09/18 Hydrocodone Bit/Acetaminophen (HYDROCODON-ACETAMINOPHEN 5-325) 1 Each Tablet, 1 EACH PO Q6-8H Y for PAIN, #20 TAB 0 Refills Prov:HANK BUNDY MD 02/22/18 Reported Medications Emtricitab/Rilpiviri/Tenof Ala (Odefsey Tablet) 200 Mg-25 Mg-25 Mg Tablet, QDAY 03/29/18 Pnv #116/Iron Fumarate/Fa/Dha (EXPECTA COMBO PACK) 1 Each Combo..pkg, 1 03/29/18 Albuterol Sulfate (PROVENTIL HFA) 6.7 Gm Inh, 1-2 PUFF INH 3-4XD for WHEEZING, INH 01/26/18 Omeprazole (OMEPRAZOLE) 20 Mg Tablet.dr, 20 MG PO QDAY, TAB 01/26/18 Citalopram Hydrobromide (CELEXA) 20 Mg Tablet, 40 MG PO QDAY, #5 TAB 11/08/17 Ondansetron Hcl (ZOFRAN) 4 Mg Tablet, 4 MG PO, TAB 11/08/17 [facility] [phone], Dr. Machado [phone] Follow up in: 2 wks PO Discharge Diet: As Tolerates, Resume Prior Admit Diet, Increase Fluid Intake Discharge Activity: As Tolerates, No Heavy Lifting > 10lb, Pelvic Rest LUCIE MACHADO DO Apr 09, 2018 09:11
[2018-04-09] MEDS: DOCUSATE CALCIUM 240 MG CAP PO SCH (09:16)
[2018-04-09] MEDS: FAMOTIDINE 20 MG TAB PO SCH (09:16)
[2018-04-09 09:20] VITALS: BP 121/83
[2018-04-09] MEDS ORDERED: IBUPROFEN 800 MG TAB PO SCH (15:00)
== END 2018-04-09 14:35 | disposition home or self-care (01) | DRG 765 ==
LOC: OB 05:13
PROVIDERS: ADMIT Obstetrics & Gynecology; ATTEND Obstetrics & Gynecology
PROC: 10D00Z1 Extraction of Products of Conception, Low, Open Approach (ICD-10-PCS; principal; 2018-04-07 07:30)
DX: O34.211 Maternal care for low transverse scar from previous cesarean delivery (principal); O98.72 Human immunodeficiency virus [HIV] disease complicating childbirth; Z68.41 Body mass index [BMI] 40.0-44.9, adult; O99.324 Drug use complicating childbirth; Z37.0 Single live birth; O99.334 Smoking (tobacco) complicating childbirth; Z21 Asymptomatic human immunodeficiency virus [HIV] infection status; Z88.0 Allergy status to penicillin; Z91.018 Allergy to other foods; F17.210 Nicotine dependence, cigarettes, uncomplicated; E03.9 Hypothyroidism, unspecified; O99.284 Endocrine, nutritional and metabolic diseases complicating childbirth; Z3A.38 38 weeks gestation of pregnancy; F12.10 Cannabis abuse, uncomplicated; K58.9 Irritable bowel syndrome, unspecified; O99.62 Diseases of the digestive system complicating childbirth; Z86.19 Personal history of other infectious and parasitic diseases; Z86.59 Personal history of other mental and behavioral disorders; F31.9 Bipolar disorder, unspecified; Z91.419 Personal history of unspecified adult abuse; O99.344 Other mental disorders complicating childbirth; J44.9 Chronic obstructive pulmonary disease, unspecified; O99.52 Diseases of the respiratory system complicating childbirth
CPT/HCPCS: 36415; 80305; 85014; 85018; 85025; 86850; 86900; 86901; J0694; J1100; J1885; J2270; J2300; J2405; J2590; J2765; J3010; J3490; J7120; Q0163

== ENCOUNTER 2018-04-13 07:30 | Emergency (ER) | payer MEDICARE, MEDICAID ==
[2018-04-07 06:38] VITALS: Wt 100.0 kg
[2018-04-13] MEDS ORDERED: EMS NS 0.9%(*) 1000 ML BAG 1,000 ML IV ONE (08:00)
--- NOTE | 2018-04-13 08:02 | ER Report ---
History and Physical Time Seen By MD: 07:30 Hx. of Stated Complaint: VAGINAL BLEEDING THAT STARTED SUDDENLY HPI/ROS This is a 32-year-old 6 days from a scheduled . was complicated only by the patient being HIV positive. There were no other complications. She presented to the emergency department brought in by EMS for one episode of what she describes as heavy vaginal bleeding that started approximately 20 minutes prior to arrival. She stated that she had been having normal vaginal bleeding, but said that this one episode was heavier than any of her other vaginal bleeding. She describes the episode as she felt as if she urinated on herself. She states that she feels mildly lightheaded. No episodes of syncope. Normal vitals in route. Also complains of mild pelvic cramping. She denies any fever chills. No dysuria. No vaginal discharge. Remainder of the 14 system rev: Yes Allergies: Coded Allergies: succinylcholine (Verified Allergy, Severe, CAN'T METABLOLIZE, 04/13/18) Family history only. Penicillins (Verified Allergy, Unknown, UNKNOWN, 04/13/18) Told as a girl. amoxicillin (Verified Allergy, Unknown, 04/13/18) erythromycin base (Verified Adverse Reaction, Mild, NAUSEA/VOMITING, ) Home Meds Active Scripts Ibuprofen (IBUPROFEN) 800 Mg Tablet, 800 MG PO Q8H@0700,1500,2300, #30 TAB 0 Refills Prov:LUCIE MACHADO DO 04/09/18 [Apap/Hydrocodone 325/7.5 Tab] 7.5 MG/325 MG TAB No Conflict Check, 1-2 EACH PO Q4-6H Y for PAIN, #40 TAB 0 Refills Prov:LUCIE MACHADO DO 04/09/18 Hydrocodone Bit/Acetaminophen (HYDROCODON-ACETAMINOPHEN 5-325) 1 Each Tablet, 1 EACH PO Q6-8H Y for PAIN, #20 TAB 0 Refills Prov:HANK BUNDY MD 02/22/18 Reported Medications Emtricitab/Rilpiviri/Tenof Ala (Odefsey Tablet) 200 Mg-25 Mg-25 Mg Tablet, QDAY 03/29/18 Pnv #116/Iron Fumarate/Fa/Dha (EXPECTA COMBO PACK) 1 Each Combo..pkg, 1 03/29/18 Albuterol Sulfate (PROVENTIL HFA) 6.7 Gm Inh, 1-2 PUFF INH 3-4XD for WHEEZING, INH 01/26/18 Omeprazole (OMEPRAZOLE) 20 Mg Tablet.dr, 20 MG PO QDAY, TAB 01/26/18 Citalopram Hydrobromide (CELEXA) 20 Mg Tablet, 40 MG PO QDAY, #5 TAB 11/08/17 Ondansetron Hcl (ZOFRAN) 4 Mg Tablet, 4 MG PO, TAB 11/08/17 Reviewed Nurses Notes: Yes Old Medical Records Reviewed: Yes Hx Smoking: Yes Smoking Status: Current: Every Day Smoker, Heavy Tobacco Smoker Exposure to Second Hand Smoke?: Yes Hx Substance Use Disorder: Yes (etoh, meth - CLEAN SINCE SEP 2017) Hx Alcohol Use: No Constitutional Vital Sign - Last 24 Hours 04/13/18 07:29 Temp 97.7 Pulse 60 Resp 14 B/P (MAP) 125/70 Pulse Ox 95 O2 Delivery Room Air Intake and Output 04/13/18 04/13/18 04/14/18 15:00 23:00 07:00 Intake Total 300 ml Balance 300 ml Physical Exam General Appearance: The patient is alert, has no immediate need for airway protection and no current signs of toxicity. Eyes: Pupils equal and round no injection. Respiratory: Chest is non tender, lungs are clear to auscultation. Cardiac: regular rate and rhythm Gastrointestinal: Abdomen is soft and non tender, no masses, bowel sounds normal. : Large blood clots in the vaginal vault and at the cervical OS. Cervix closed after removal of clots. No active bleeding Extremities have full range of motion and are non tender. Mild edema to b/l feet Skin: No rashes or lesions. DIFFERENTIAL DIAGNOSIS: After history and physical exam differential diagnosis was considered for hemorrhage, infection, normal bleeding. Medical Decision Making Data Points Result Diagram: 04/13/18 0817 04/13/18 0817 Laboratory Hematology Test 04/13/18 07:53 04/13/18 08:17 Whole Blood Glucose 92 mg/DL (75-110) Red Blood Count 3.64 M/uL (4.17-5.56) Mean Corpuscular Volume 93.2 fL (80.0-96.0) Mean Corpuscular Hemoglobin 31.4 pg (26.0-33.0) Mean Corpuscular Hemoglobin Concent 33.7 g/dL (32.0-36.0) Red Cell Distribution Width 14.2 % (11.5-14.5) Mean Platelet Volume 7.2 fL (7.2-11.1) Neutrophils (%) (Auto) 73.2 % (39.4-72.5) Lymphocytes (%) (Auto) 15.5 % (17.6-49.6) Monocytes (%) (Auto) 7.4 % (4.1-12.4) Eosinophils (%) (Auto) 2.8 % (0.4-6.7) Basophils (%) (Auto) 1.1 % (0.3-1.4) Nucleated RBC Relative Count (auto) 0.0 /100WBC Neutrophils # (Auto) 3.8 K/uL (2.0-7.4) Lymphocytes # (Auto) 0.8 K/uL (1.3-3.6) Monocytes # (Auto) 0.4 K/uL (0.3-1.0) Eosinophils # (Auto) 0.1 K/uL (0.0-0.5) Basophils # (Auto) 0.1 K/uL (0.0-0.1) Nucleated RBC Absolute Count (auto) 0.00 K/uL Sodium Level 141 mmol/L (137-145) Potassium Level 3.7 mmol/L (3.5-5.0) Chloride Level 112 mmol/L (98-107) Carbon Dioxide Level 22 mmol/L (22-31) Blood Urea Nitrogen 15 mg/dl (7-18) Creatinine 0.70 mg/dl (0.52-1.04) Glomerular Filtration Rate Calc > 60.0 Random Glucose 82 mg/dl (75-110) Calcium Level 8.4 mg/dl (8.4-10.2) Total Bilirubin 0.3 mg/dl (0.2-1.3) Aspartate Amino Transf (AST/SGOT) 11 U/L (0-35) Alanine Aminotransferase (ALT/SGPT) 22 U/L (0-56) Alkaline Phosphatase 93 U/L (0-126) Total Protein 5.3 g/dl (6.3-8.2) Albumin 2.7 g/dl (3.5-5.0) Chemistry Test 04/13/18 07:53 04/13/18 08:17 Whole Blood Glucose 92 mg/DL (75-110) White Blood Count 5.1 k/uL (4.5-11.0) Red Blood Count 3.64 M/uL (4.17-5.56) Hemoglobin 11.4 g/dL (12.0-16.0) Hematocrit 33.9 % (34.0-47.0) Mean Corpuscular Volume 93.2 fL (80.0-96.0) Mean Corpuscular Hemoglobin 31.4 pg (26.0-33.0) Mean Corpuscular Hemoglobin Concent 33.7 g/dL (32.0-36.0) Red Cell Distribution Width 14.2 % (11.5-14.5) Platelet Count 382 K/uL (150-450) Mean Platelet Volume 7.2 fL (7.2-11.1) Neutrophils (%) (Auto) 73.2 % (39.4-72.5) Lymphocytes (%) (Auto) 15.5 % (17.6-49.6) Monocytes (%) (Auto) 7.4 % (4.1-12.4) Eosinophils (%) (Auto) 2.8 % (0.4-6.7) Basophils (%) (Auto) 1.1 % (0.3-1.4) Nucleated RBC Relative Count (auto) 0.0 /100WBC Neutrophils # (Auto) 3.8 K/uL (2.0-7.4) Lymphocytes # (Auto) 0.8 K/uL (1.3-3.6) Monocytes # (Auto) 0.4 K/uL (0.3-1.0) Eosinophils # (Auto) 0.1 K/uL (0.0-0.5) Basophils # (Auto) 0.1 K/uL (0.0-0.1) Nucleated RBC Absolute Count (auto) 0.00 K/uL Glomerular Filtration Rate Calc > 60.0 Calcium Level 8.4 mg/dl (8.4-10.2) Total Bilirubin 0.3 mg/dl (0.2-1.3) Aspartate Amino Transf (AST/SGOT) 11 U/L (0-35) Alanine Aminotransferase (ALT/SGPT) 22 U/L (0-56) Alkaline Phosphatase 93 U/L (0-126) Total Protein 5.3 g/dl (6.3-8.2) Albumin 2.7 g/dl (3.5-5.0) ED Course/Re-evaluation ED Course Brought in by ambulance 6 days post . Chief complaint is an episode of heavy vaginal bleeding. She has had normal vitals throughout. Her H&H is stable. Physical exam, I removed multiple blood clots from the vaginal vault and from the os. Her cervix is closed. She was observed for approximately an additional one hour in the emergency department, and there were no additional episodes of vaginal bleeding. The patient feels well, and states that her cramping abdominal pain has subsided. I did give her strict precautions to return to the emergency department if she has additional multiple episodes of heavy vaginal bleeding or develops a fever greater than 100.4. She voices understanding, and will otherwise follow up with her OB doctor as scheduled Decision to Disposition Date: Apr 13, 2018 Decision to Disposition Time: 09:09 Depart Departure Latest Vital Signs Vital Signs Date Time Temp Pulse Resp B/P (MAP) Pulse Ox O2 Delivery O2 Flow Rate FiO2 04/13/18 07:29 97.7 60 14 125/70 95 Room Air Impression: Primary Impression: Episode of heavy vaginal bleeding Condition: Improved Disposition: HOME OR SELF-CARE Referrals: LUCIE MACHADO DO (PCP) Patient Instructions: Post Discharge Instruct Additional Instructions: If you have multiple additional episodes of heavy vaginal bleeding or a fever greater than 100.4 return to the emergency department. SANDHYA BAE MD Apr 13, 2018 08:02
[2018-04-13 08:32] LABS: PLATELET COUNT, AUTOMATED 382 K/uL (150-450)
[2018-04-13 08:48] VITALS: BP 134/75
== END 2018-04-13 09:17 | disposition home or self-care (01) ==
LOC: ER 07:35
DX: O72.2 Delayed and secondary postpartum hemorrhage (principal)
CPT/HCPCS: 36415; 36416; 82040; 82247; 82310; 82374; 82435; 82565; 82947; 82948; 84075; 84132; 84155; 84295; 84450; 84460; 84520; 85025; 96360; 99283

== ENCOUNTER → 2018-04-13 | Outpatient (CLI) | payer MEDICARE, MEDICAID ==
[2018-04-07 06:38] VITALS: BMI 43.2
[~2018-04-13] MED LIST changes: +Acetaminophen/Hydrocodone PO
== END ==
LOC: AMB 07:08
PROVIDERS: ATTEND Nurse Practitioner
DX: N93.9 Abnormal uterine and vaginal bleeding, unspecified (principal); R10.32 Left lower quadrant pain
CPT/HCPCS: A0425; A0427

== ENCOUNTER → 2018-09-18 | Outpatient (CLI) | payer MEDICARE, MEDICAID ==
[2018-04-07 06:38] VITALS: BMI 43.2
[~2018-09-18] MED LIST changes: -HYDR-4308 PO; +HYDR-654 PO
[2018-09-18 12:49] LABS: PLATELET COUNT, AUTOMATED 311 K/uL (150-450)
== END ==
LOC: LAB 10:54
PROVIDERS: ATTEND Student in an Organized Health Care Education/Training Program
DX: Z34.91 Encounter for supervision of normal pregnancy, unspecified, first trimester (principal); O09.91 Supervision of high risk pregnancy, unspecified, first trimester; O98.711 Human immunodeficiency virus [HIV] disease complicating pregnancy, first trimester; E03.9 Hypothyroidism, unspecified
CPT/HCPCS: 36415; 80305; 81001; 82040; 82247; 82310; 82374; 82435; 82565; 82947; 84075; 84132; 84155; 84295; 84443; 84450; 84460; 84520; 85025; 86592; 86703; 86762; 86850; 86900; 86901; 87088; 87340; 87536

== ENCOUNTER → 2018-10-23 | Outpatient (CLI) | payer MEDICARE, MEDICAID ==
[2018-04-07 06:38] VITALS: BMI 43.2
[~2018-10-23] MED LIST changes: +AZIT-17 PO; +EMTR1TAB4 PO; +NITR-105 PO
== END ==
LOC: LAB 14:27
PROVIDERS: ATTEND Student in an Organized Health Care Education/Training Program
DX: Z34.91 Encounter for supervision of normal pregnancy, unspecified, first trimester (principal)
CPT/HCPCS: 87491; 87591

== ENCOUNTER → 2018-11-13 | Outpatient (CLI) | payer MEDICARE, MEDICAID ==
[2018-04-07 06:38] VITALS: BMI 43.2
--- NOTE | 2018-11-13 14:09 | RADIOLOGY IMAGING REPORT ---
FACILITY: [facility] - [place] PATIENT NAME: Anusha Warren : 1985 MR: [id number] V: [id number] EXAM DATE: ORDERING PHYSICIAN: LUCIE MACHADO TECHNOLOGIST: Location: [facility] - [place] Patient: Anusha Warren : 1985 Visit/Account:[id number] Date of Sevice: 11/13/2018 [facility] [place]ATOMICAL SURVEY HISTORY: 20 week anatomical survey COMPARISON: None. TECHNIQUE: Transabdominal imaging was performed for assessment of the fetus and maternal pelvic s tructures. Transvaginal imaging was not performed. FINDINGS: Intrauterine gestations: One. presentation: Variable. heart rate: 158 bpm. Amniotic fluid volume: Normal; SAMANTHA 19.94 cm; MVP 6.93 cm. Placenta: Anterior. Uterus: Gravid, otherwise grossly unremarkable where visualized. Maternal adnexa/ovaries: Grossly unremarkable, ovaries not visualized. Cervix: Grossly long and closed. Gestational Parameters: BPD: 4.37 cm, 24th percentile HC: 17.03 centers, 32nd percentile AC: 14.62 cm, 47th percentile FL: 3.23 cm, 50th percentile Average ultrasound age (AUA): 19 weeks/ six days Estimated age based on LMP: 19 weeks/ six days Estimated weight (EFW): 322 grams +/- 47 grams, equivalent to the 50th percentile Anatomic Survey: Intracranial structures, 4-chamber heart, stomach, kidneys, urinary bladder, spine, 3-vessel cord and cord insertion are unremarkable. Two upper and two lower extremities visualized. IMPRESSION: Single viable fetus in viable presentation with an estimated gestational age of 19 weeks and six days . This corresponds to the estimated gestational age by LMP Estimated weight 322 g which is equivalent to the 50th percentile Report Dictated By: Nai Chisholm MD at 11/13/2018 1:57 PM Report E-Signed By: Nai Chisholm MD at 11/13/2018 2:03 PM WSN:[email or web address]
== END ==
LOC: RAD 11:11
PROVIDERS: ATTEND Student in an Organized Health Care Education/Training Program
DX: Z02.9 Encounter for administrative examinations, unspecified (principal)

== ENCOUNTER → 2018-11-13 | Outpatient (CLI) | payer MEDICARE, MEDICAID ==
[2018-04-07 06:38] VITALS: BMI 43.2
[2018-11-13 13:16] LABS: PLATELET COUNT, AUTOMATED 325 K/uL (150-450)
== END ==
LOC: LAB 12:03
PROVIDERS: ATTEND Student in an Organized Health Care Education/Training Program
DX: B20 Human immunodeficiency virus [HIV] disease (principal)
CPT/HCPCS: 36415; 83690; 85025; 86359; 86360; 86644; 86645; 86777; 86778; 87535; G0472; 82040; 82247; 82310; 82374; 82435; 82565; 82947; 84075; 84132; 84155; 84295; 84450; 84460; 84520; 86803

== ENCOUNTER → 2019-01-02 | Outpatient (CLI) | payer MEDICARE, MEDICAID ==
[2018-04-07 06:38] VITALS: BMI 43.2
[~2019-01-02] MED LIST changes: +DIPH0.5D12 IM; +OMEP-125 PO
[2019-01-02 16:49] LABS: PLATELET COUNT, AUTOMATED 340 K/uL (150-450)
== END ==
LOC: LAB 15:06
PROVIDERS: ATTEND Student in an Organized Health Care Education/Training Program
DX: O98.712 Human immunodeficiency virus [HIV] disease complicating pregnancy, second trimester (principal); O99.322 Drug use complicating pregnancy, second trimester; O99.282 Endocrine, nutritional and metabolic diseases complicating pregnancy, second trimester; E03.9 Hypothyroidism, unspecified; B20 Human immunodeficiency virus [HIV] disease
CPT/HCPCS: 36415; 82040; 82247; 82310; 82374; 82435; 82565; 82947; 82950; 83690; 84075; 84132; 84155; 84295; 84443; 84450; 84460; 84520; 85025

== ENCOUNTER 2019-01-14 21:09 | Outpatient (CLI) | payer MEDICARE, MEDICAID ==
[~2019-01-14] VITALS: Ht 162.6 cm; Wt 95.3 kg
[2019-01-14 21:30] VITALS: BP 129/77; Ht 162.6 cm; Wt 95.3 kg
== END 2019-01-14 23:00 | disposition home or self-care (01) ==
LOC: UNDOADMOB 21:09 → OB 21:09 → L&D 21:09 → UNDODISOB 22:00 → OB 22:00 → L&D 23:00 → EDSTATUS 01-15 16:12
PROVIDERS: ATTEND Student in an Organized Health Care Education/Training Program
DX: O26.893 Other specified pregnancy related conditions, third trimester (principal); Z3A.28 28 weeks gestation of pregnancy
CPT/HCPCS: 59025; G0463; 99213

== ENCOUNTER 2019-01-14 22:05 | Emergency (ER) | payer MEDICARE, MEDICAID ==
[2018-04-07 06:38] VITALS: Wt 95.3 kg
[2019-01-14] MEDS ORDERED: NS(*) 0.9% 1000 ML BAG 1,000 ML IV ONE (22:16)
--- NOTE | 2019-01-14 22:18 | ER Report ---
History and Physical Time Seen By MD: 22:18 Hx. of Stated Complaint: PT REPORTS UMBILICAL HERNIA SINCE LAST PRENANCY. PT REPORTS USUALLY BEING ABLE TO POP IT BACK IN. HPI/ROS CHIEF COMPLAINT: umbilical hernia HISTORY OF PRESENT ILLNESS: This is a 33 year old female. She is having pain around the umbilicus, has history of hernia there since her last . It pushes out occasionally, but always able to push it back in. Tonight it is more painful, cannot push it in and having vomiting. Went up to OB floor first to evaluate and no problems with . She is 28 weeks and 6 days along in her . Taking Tylenol as needed for pain. No other pain. No fevers or chills. Normal urination. Normal bowels today. Doing alot of walking, picking up children and other work. Allergies: Coded Allergies: succinylcholine (Verified Allergy, Severe, CAN'T METABLOLIZE, 01/14/19) Family history only. Penicillins (Verified Allergy, Unknown, UNKNOWN, 01/14/19) Told as a girl. amoxicillin (Verified Allergy, Unknown, 01/14/19) erythromycin base (Verified Adverse Reaction, Mild, NAUSEA/VOMITING, 01/14/19) Home Meds Active Scripts Omeprazole (OMEPRAZOLE) 20 Mg Capsule.dr, 1 CAP PO QDAY, #30 CAP 2 Refills Prov:LUCIE MACHADO DO 01/03/19 Emtricitab/Rilpiviri/Tenof Ala (Odefsey Tablet) 200 Mg-25 Mg-25 Mg Tablet, 1 TAB PO DAILY, #30 TAB 9 Refills Prov:LUCIE MACHADO DO 10/23/18 Albuterol Sulfate (PROVENTIL HFA) 6.7 Gm Inh, 1-2 PUFF INH 3-4XD for WHEEZING, #1 INH 6 Refills Prov:JEANNETTELUCIE DO 10/23/18 Ondansetron Hcl (ZOFRAN) 4 Mg Tablet, 4 MG PO Q6H, #30 TAB 3 Refills Prov:LUCIE MACHADO DO 10/23/18 Reported Medications Pnv #116/Iron Fumarate/Fa/Dha (EXPECTA COMBO PACK) 1 Each Combo..pkg, 1 03/29/18 Citalopram Hydrobromide (CELEXA) 20 Mg Tablet, 40 MG PO QDAY, #5 TAB 11/08/17 Reviewed Nurses Notes: Yes Hx Smoking: Yes Smoking Status: Current: Every Day Smoker, Heavy Tobacco Smoker Exposure to Second Hand Smoke?: Yes Hx Substance Use Disorder: Yes (etoh, meth - CLEAN SINCE SEP 2017) Hx Alcohol Use: No Constitutional Vital Sign - Last 24 Hours 01/14/19 01/14/19 01/14/19 01/14/19 22:08 22:09 22:20 22:35 Temp 98.5 Pulse 88 82 82 Resp 20 B/P (MAP) 120/66 (84) 120/66 Pulse Ox 95 95 96 O2 Delivery Room Air 01/14/19 01/14/19 01/14/19 01/14/19 22:50 23:05 23:20 23:35 Pulse 85 82 94 90 Pulse Ox 97 95 96 96 01/14/19 23:37 B/P (MAP) 106/47 (66) Intake and Output 01/14/19 01/14/19 01/15/19 15:00 23:00 07:00 Intake Total 1000 ml Balance 1000 ml Physical Exam General Appearance: Alert, mild distress. Eyes: Pupils equal and round no injection. ENT: Moist mucous membranes. Respiratory: Lungs clear. Cardiac: regular rate and rhythm Gastrointestinal: Abdomen is soft, tender over umbilicus, bulge present just superior to the umbilicus. Cannot feel defect in abd wall associated. Skin: No rashes or lesions. DIFFERENTIAL DIAGNOSIS: After history and physical exam differential diagnosis was considered for umbilical hernia. Medical Decision Making Data Points Result Diagram: 01/14/19222401/14/192224 Laboratory Hematology Test 01/14/19 22:20 01/14/19 22:25 Urine Color Yellow Urine Clarity Slightly-cloudy Urine pH 6.0 pH (4.8-9.5) Urine Specific Wenden 1.019 Urine Protein Negative mg/dL (NEGATIVE) Urine Glucose (UA) Negative mg/dL (NEGATIVE) Urine Ketones Negative mg/dL (NEGATIVE) Urine Blood Negative (NEGATIVE) Urine Nitrite Positive (NEGATIVE) Urine Bilirubin Negative (NEGATIVE) Urine Urobilinogen Negative mg/dL (0.2-1.9) Urine Leukocyte Esterase Small (NEGATIVE) Urine RBC 1 /HPF (0-2/HPF) Urine WBC 5 /HPF (0-5/HPF) Urine Squamous Epithelial Cells Many /LPF (</=FEW) Urine Transitional Epithelial Cells Few /LPF (NONE-FEW) Urine Bacteria Few /HPF (NONE-FEW) Urine Mucus None /HPF (NONE-FEW) Red Blood Count 3.84 M/uL (4.17-5.56) Mean Corpuscular Volume 90.8 fL (80.0-96.0) Mean Corpuscular Hemoglobin 30.5 pg (26.0-33.0) Mean Corpuscular Hemoglobin Concent 33.6 g/dL (32.0-36.0) Red Cell Distribution Width 13.9 % (11.5-14.5) Mean Platelet Volume 7.2 fL (7.2-11.1) Neutrophils (%) (Auto) 77.7 % (39.4-72.5) Lymphocytes (%) (Auto) 14.0 % (17.6-49.6) Monocytes (%) (Auto) 6.7 % (4.1-12.4) Eosinophils (%) (Auto) 1.0 % (0.4-6.7) Basophils (%) (Auto) 0.6 % (0.3-1.4) Nucleated RBC Relative Count (auto) 0.0 /100WBC Neutrophils # (Auto) 4.8 K/uL (2.0-7.4) Lymphocytes # (Auto) 0.9 K/uL (1.3-3.6) Monocytes # (Auto) 0.4 K/uL (0.3-1.0) Eosinophils # (Auto) 0.1 K/uL (0.0-0.5) Basophils # (Auto) 0.0 K/uL (0.0-0.1) Nucleated RBC Absolute Count (auto) 0.00 K/uL Sodium Level 135 mmol/L (137-145) Potassium Level 3.7 mmol/L (3.5-5.0) Chloride Level 109 mmol/L (98-107) Carbon Dioxide Level 20 mmol/L (22-31) Blood Urea Nitrogen 8 mg/dl (7-18) Creatinine 0.50 mg/dl (0.52-1.04) Glomerular Filtration Rate Calc > 60.0 Random Glucose 78 mg/dl (75-110) Lactate 1.1 mmol/L (0.7-2.1) Calcium Level 8.4 mg/dl (8.4-10.2) Total Bilirubin 0.2 mg/dl (0.2-1.3) Aspartate Amino Transf (AST/SGOT) 10 U/L (0-35) Alanine Aminotransferase (ALT/SGPT) 15 U/L (0-56) Alkaline Phosphatase 92 U/L (0-126) Total Protein 5.9 g/dl (6.3-8.2) Albumin 3.1 g/dl (3.5-5.0) Chemistry Test 01/14/19 22:20 01/14/19 22:25 Urine Color Yellow Urine Clarity Slightly-cloudy Urine pH 6.0 pH (4.8-9.5) Urine Specific Wenden 1.019 Urine Protein Negative mg/dL (NEGATIVE) Urine Glucose (UA) Negative mg/dL (NEGATIVE) Urine Ketones Negative mg/dL (NEGATIVE) Urine Blood Negative (NEGATIVE) Urine Nitrite Positive (NEGATIVE) Urine Bilirubin Negative (NEGATIVE) Urine Urobilinogen Negative mg/dL (0.2-1.9) Urine Leukocyte Esterase Small (NEGATIVE) Urine RBC 1 /HPF (0-2/HPF) Urine WBC 5 /HPF (0-5/HPF) Urine Squamous Epithelial Cells Many /LPF (</=FEW) Urine Transitional Epithelial Cells Few /LPF (NONE-FEW) Urine Bacteria Few /HPF (NONE-FEW) Urine Mucus None /HPF (NONE-FEW) White Blood Count 6.1 k/uL (4.5-11.0) Red Blood Count 3.84 M/uL (4.17-5.56) Hemoglobin 11.7 g/dL (12.0-16.0) Hematocrit 34.9 % (34.0-47.0) Mean Corpuscular Volume 90.8 fL (80.0-96.0) Mean Corpuscular Hemoglobin 30.5 pg (26.0-33.0) Mean Corpuscular Hemoglobin Concent 33.6 g/dL (32.0-36.0) Red Cell Distribution Width 13.9 % (11.5-14.5) Platelet Count 322 K/uL (150-450) Mean Platelet Volume 7.2 fL (7.2-11.1) Neutrophils (%) (Auto) 77.7 % (39.4-72.5) Lymphocytes (%) (Auto) 14.0 % (17.6-49.6) Monocytes (%) (Auto) 6.7 % (4.1-12.4) Eosinophils (%) (Auto) 1.0 % (0.4-6.7) Basophils (%) (Auto) 0.6 % (0.3-1.4) Nucleated RBC Relative Count (auto) 0.0 /100WBC Neutrophils # (Auto) 4.8 K/uL (2.0-7.4) Lymphocytes # (Auto) 0.9 K/uL (1.3-3.6) Monocytes # (Auto) 0.4 K/uL (0.3-1.0) Eosinophils # (Auto) 0.1 K/uL (0.0-0.5) Basophils # (Auto) 0.0 K/uL (0.0-0.1) Nucleated RBC Absolute Count (auto) 0.00 K/uL Glomerular Filtration Rate Calc > 60.0 Lactate 1.1 mmol/L (0.7-2.1) Calcium Level 8.4 mg/dl (8.4-10.2) Total Bilirubin 0.2 mg/dl (0.2-1.3) Aspartate Amino Transf (AST/SGOT) 10 U/L (0-35) Alanine Aminotransferase (ALT/SGPT) 15 U/L (0-56) Alkaline Phosphatase 92 U/L (0-126) Total Protein 5.9 g/dl (6.3-8.2) Albumin 3.1 g/dl (3.5-5.0) Urinalysis Test 01/14/19 22:20 Urine Color Yellow Urine Clarity Slightly-cloudy Urine pH 6.0 pH (4.8-9.5) Urine Specific Wenden 1.019 Urine Protein Negative mg/dL (NEGATIVE) Urine Glucose (UA) Negative mg/dL (NEGATIVE) Urine Ketones Negative mg/dL (NEGATIVE) Urine Blood Negative (NEGATIVE) Urine Nitrite Positive (NEGATIVE) Urine Bilirubin Negative (NEGATIVE) Urine Urobilinogen Negative mg/dL (0.2-1.9) Urine Leukocyte Esterase Small (NEGATIVE) Urine RBC 1 /HPF (0-2/HPF) Urine WBC 5 /HPF (0-5/HPF) Urine Squamous Epithelial Cells Many /LPF (</=FEW) Urine Transitional Epithelial Cells Few /LPF (NONE-FEW) Urine Bacteria Few /HPF (NONE-FEW) Urine Mucus None /HPF (NONE-FEW) ED Course/Re-evaluation Clinical Indication for ER IV: IV Access ED Course Labs unremarkable. Attempted to reduce the hernia, but very painful for the patient and unsuccessful. Had her lay down for a while and contacted the general surgeon, Dr. Camarillo, to come in and evaluate. When Dr. Camarillo did her evaluation, the hernia had reduced. I re-evaluated as well and the hernia is reduced and can feel the small abdominal wall defect now. Recommended Tylenol and Ibuprofen for pain and inflammation. Zofran for nausea. Decision to Disposition Date: Jan 14, 2019 Decision to Disposition Time: 23:31 Depart Departure Latest Vital Signs Vital Signs Date Time Temp Pulse Resp B/P (MAP) Pulse Ox O2 Delivery O2 Flow Rate FiO2 01/14/19 23:37 106/47 (66) 01/14/19 23:35 90 96 01/14/19 22:09 98.5 20 Room Air Impression: Primary Impression: Umbilical hernia Condition: Improved Disposition: HOME OR SELF-CARE Referrals: LUCIE MACHADO DO (PCP) Patient Instructions: Umbilical Hernia (ED) Additional Instructions: You have a hernia at your belly button, which is inflamed and irritated. We recommend limiting any heavy lifting as much as possible. Also recommend not spending a lot of time in your feet. Sometimes if this is hurting too much, laying down can help relieve some of the pressure. You can use Tylenol or ibuprofen as needed for pain. You can use the Zofran you have at home as needed for nausea. If having increased pain, a bulge that won't reduce, or worsening nausea with vomiting, or severe fevers, please return to the ER for reevaluation. Problem Qualifiers Primary Impression: Umbilical hernia Obstruction and gangrene presence: without obstruction or gangrene Qualified Codes: K42.9 - Umbilical hernia without obstruction or gangrene SHANAE ANDERSEN MD Jan 14, 2019 22:18
[2019-01-14] MEDS ORDERED: ONDANSETRON 4 MG/2 ML VIAL IVP ONE (22:20)
[2019-01-14 22:33] LABS: PLATELET COUNT, AUTOMATED 322 K/uL (150-450)
[2019-01-14 23:37] VITALS: BP 106/47
== END 2019-01-14 23:43 | disposition home or self-care (01) ==
LOC: ER 22:29
DX: O26.893 Other specified pregnancy related conditions, third trimester (principal); Z3A.28 28 weeks gestation of pregnancy; K42.9 Umbilical hernia without obstruction or gangrene
CPT/HCPCS: 81001; 83605; 85025; 87077; 87088; 87186; 96361; 96374; 99283; J2405; J7030; 59025; 82040; 82247; 82310; 82374; 82435; 82565; 82947; 84075; 84132; 84155; 84295; 84450; 84460; 84520; 99213

== ENCOUNTER → 2019-01-17 | Outpatient (CLI) | payer MEDICARE, MEDICAID ==
[2018-04-07 06:38] VITALS: BMI 43.2
== END ==
LOC: LAB 11:39
PROVIDERS: ATTEND Student in an Organized Health Care Education/Training Program
DX: O99.810 Abnormal glucose complicating pregnancy (principal); O98.719 Human immunodeficiency virus [HIV] disease complicating pregnancy, unspecified trimester
CPT/HCPCS: 36415; 82951; 82952

== ENCOUNTER → 2019-02-02 | Outpatient (CLI) | payer MEDICARE, MEDICAID ==
[2019-01-14 21:30] VITALS: BMI 36.0
[~2019-02-02] MED LIST changes: -DIPH0.5D12 IM; +DIPH0.5S2 IM
== END ==
LOC: LAB 13:14
PROVIDERS: ATTEND Student in an Organized Health Care Education/Training Program
DX: B20 Human immunodeficiency virus [HIV] disease (principal)
CPT/HCPCS: 36415

== ENCOUNTER 2019-02-16 22:04 | Observation (INO) | payer MEDICARE, MEDICAID ==
[~2019-02-16] VITALS: Ht 160 cm; Wt 97.1 kg
[2019-02-16 22:30] VITALS: BP 139/66; Ht 160 cm; Wt 97.1 kg
[2019-02-16] MEDS ORDERED: LR(*) 1000 ML BAG 1,000 ML IV PRN (23:35)
--- NOTE | 2019-02-16 23:38 | History & Physical ---
History of Present Illness Age of Patient: 33 : 6 Para or TPAL: 5 EDC per LMP: Apr 03, 2019 Estimated Gestational Age: 33 (33 3/7) Chief Complaint "vaginal bleeding" History of Present Illness Pt is s 33 that presents with report of vaginal spotting she noted this evening at about 2230 after getting up to void and have BM. Describes the amount as small but bright red. Reports occasional contractions and pelvic pressure she noted this evening as well. Denies recent intercourse, antibiotics or change in medications. Does reports some mild low back pain. Denies dysuria, hematuria, or hemorrhoids. Denies any recent drug use and consents to UTOX. History Patient's Blood Type: O Positive Rubella Status: Immune Group B Strep Screen: Unknown Obstetrical History: Pt is receiving care, has had some gaps in care but is routinely seen in this trimester. Pt hx complicated by one at 36 week and 2 prior c-sections. Pt is scheduled for with this baby on 03/21/19. Pt has a history of meth and IV drug use and is currently HIV positive. Pt states she is taking her HIV meds daily. Past Medical History: Pt medical history is complicated by HIV with gaps in treatment. Pt has + hx of Chlamydia but not in this . Pt had normal pap in 2017. Allergies: Coded Allergies: succinylcholine (Verified Allergy, Severe, CAN'T METABLOLIZE, 01/14/19) Family history only. Penicillins (Verified Allergy, Unknown, UNKNOWN, 01/14/19) Told as a girl. amoxicillin (Verified Allergy, Unknown, 01/14/19) erythromycin base (Verified Adverse Reaction, Mild, NAUSEA/VOMITING, 01/14/19) Social History: Patient lives with her boyfriend of about 4 years. Smokes 2-4 cigarettes per day, smokes pot a few times per week. Family History: Drug addiction FATHER, , Age:49 FH: COPD (chronic obstructive pulmonary disease) FATHER, , Age:49 MOTHER, Age:50 FH: HTN (hypertension) FATHER, , Age:49 FH: congestive heart failure FATHER, , Age:49 FH: depression MOTHER, Age:50 FH: rheumatoid arthritis FATHER, , Age:49 Fibromyalgia MOTHER, Age:50 Graves' disease MOTHER, Age:50 Schizophrenia MOTHER, Age:50 Med Rec Home Meds Active Scripts Ondansetron Hcl (ZOFRAN) 4 Mg Tablet, 4 MG PO Q6H MDD 24MG, #30 TAB 2 Refills Prov:LUCIE MACHADO DO 02/05/19 Omeprazole (OMEPRAZOLE) 20 Mg Capsule.dr, 1 CAP PO QDAY, #30 CAP 2 Refills Prov:LUCIE MACHADO DO 01/03/19 Emtricitab/Rilpiviri/Tenof Ala (Odefsey Tablet) 200 Mg-25 Mg-25 Mg Tablet, 1 TAB PO DAILY, #30 TAB 9 Refills Prov:LUCIE MACHADO DO 10/23/18 Albuterol Sulfate (PROVENTIL HFA) 6.7 Gm Inh, 1-2 PUFF INH 3-4XD for WHEEZING, #1 INH 6 Refills Prov:LUCIE MACHADO DO 10/23/18 Reported Medications Pnv #116/Iron Fumarate/Fa/Dha (EXPECTA COMBO PACK) 1 Each Combo..pkg, 1 03/29/18 Citalopram Hydrobromide (CELEXA) 20 Mg Tablet, 40 MG PO QDAY, #5 TAB 11/08/17 Review of Systems Constitutional: No Fever Neurological: No Weakness, No Dizziness Eyes: No Vision Change Cardiovascular: No Chest Pain Respiratory: No Shortness of Breath Gastrointestinal: No Nausea, No Vomiting, No Diarrhea Genitourinary: No Dysuria, No Hematuria Exam General Exam Vital Signs Vital Signs Date Time Temp Pulse Resp B/P (MAP) Pulse Ox O2 Delivery O2 Flow Rate FiO2 02/16/19 22:30 98.4 90 20 139/66 (90) 96 Room Air General Apperance: Alert/Awake/No Acute Distress, Afebrile Neuro: No Gross deficits Cardiovascular: Regular Rate and Rhythm Respiratory: No Respiratory Distress, Clear to Auscultation Abdomen: Soft, Non-Tender, Non-Distended, Gravid - Non-Tender : CVA Tenderness Psychological: Alert & Oriented X3 Vaginal Discharge/Fluid?: Bloody Show Cervical Dialation: 1 (SSE Cx appears closed but small amount of pink bleeding noted from OS. Cervical length performed by Dr. Karyn SANCHEZ CL 2.32 , with stress 1.79cm) Cervical Effacement (%): 50 Cervical Consistency: Soft Cervical Position: Mid Station: Ballotable Presentation: Vertex Uterine Contractions(Q min): 0 (Irregular) Uterine Contraction Strength: Mild UC Resting Tone: Soft Fetus Feeling Movement?: Yes Heart Tones: 150 Heart Tone Variabilty: Moderate FHT Accelerations: 15X15 FHT Decelerations: None FHT Category: I Medical Decision Making Data Points GC/CT pending, GBS pending Wet mount negative for trich, hyphae or clue cells VTE Prophylasis: Adult Pharmacological Contraindicati: Pt at Low Risk for VTE Mechanical Contraindications: Pt at Low Risk for VTE Assessment and Plan [employer]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 Maternal Well Being Afebrile, Normotensive contractions vs. labor, will IV hydrate, NPO for now, ice chips only Vaginal bleeding noted from OS on SSE, Wet mount negative HIV positive has viral load assessment scheduled for 02/22 Will monitor for contractions, if contractions increase will start Betamethasone, consult with physicians and consider transport 2. Well Being: Reactive NST, Cat 1 FHT 3. Lab: Pending GC/CT, and GBS, UTOX neg UA negative 4. Monitor overnight. Maintain fluids. May DC in am if no further bleeding. (2) History of delivery affecting (3) HIV disease affecting in third trimester, antepartum Status: Chronic DERRELL CAMPOS CNM February 16, 2019 23:38
[2019-02-17] MEDS: ONDANSETRON 4 MG ODT TABDP SL PRN ×2 (02:45→09:42)
--- NOTE | 2019-02-17 10:04 | Labor Progress Note ---
Labor Subjective Progress Notes Subjective Pt denies contractions or any further vaginal bleeding. Pt feels comfortable going home today. Reports having an appt scheduled on 02/22/19. Feeling Movement?: Yes Labor Objective Vital Signs Vital Signs Date Time Temp Pulse Resp B/P (MAP) Pulse Ox O2 Delivery O2 Flow Rate FiO2 02/16/19 22:30 98.4 90 20 139/66 (90) 96 Room Air Vaginal Discharge/Fluid?: Other (No vaginal bleeding noted when up to void.) Cervical Dialation: 0. (Exam deferred. ) Uterine Contractions(Q min): 0 UC Resting Tone: Soft Fetus Heart Tones: 135 Heart Tone Variabilty: Moderate FHT Accelerations: 15X15 FHT Decelerations: None FHT Category: I (Reactive NST) General Exam General Appearance: Alert/Awake/No Acute Distress Abdomen: Soft, Non-Tender, Non-Distended, Gravid - Non-Tender Psychological: Alert & Oriented X3 Assessment and Plan Problems: (1) Vaginal bleeding during Assessment & Plan: 1. Maternal Well Being: Normotensive, afebrile. No further bleeding. Reviewed warning signs and when to return to [facility] or clinic Continue with routine medications when home Regular diet DC to home 2. Well Being Reactive NST; Reviewed kick counts 3. Plan: DC today with precautions. (2) History of delivery affecting (3) HIV disease affecting in third trimester, antepartum Status: Chronic DERRELL CAMPOS CNM February 17, 2019 10:04
--- NOTE | 2019-02-17 10:05 | OB/GYN Discharge Summary ---
Discharge Summary Reason for Hosp/Final Diag: (1) Vaginal bleeding during Onset Date: ~ 02/16/2019 Hospital Course & Plan: Assessment & Plan: 1. Maternal Well Being: Normotensive, afebrile. No further bleeding. Reviewed warning signs and when to return to [facility] or clinic Continue with routine medications when home Regular diet DC to home 2. Well Being Reactive NST; Reviewed kick counts 3. Plan: DC today with precautions. (2) History of delivery affecting (3) HIV disease affecting in third trimester, antepartum Status: Chronic Lates Vital Signs Vital Signs Date Time Temp Pulse Resp B/P (MAP) Pulse Ox O2 Delivery O2 Flow Rate FiO2 02/16/19 22:30 98.4 90 20 139/66 (90) 96 Room Air Weight (Pounds): 214 Weight (Ounces): 9.0 UA WNL UTOX negative Condition: Improved Discharge: Home, Self Custodial Meds Active Scripts Ondansetron Hcl (ZOFRAN) 4 Mg Tablet, 4 MG PO Q6H MDD 24MG, #30 TAB 2 Refills Prov:LUCIE MACHADO DO 02/05/19 Omeprazole (OMEPRAZOLE) 20 Mg Capsule., 1 CAP PO QDAY, #30 CAP 2 Refills Prov:LUCIE MACHADO DO 01/03/19 Emtricitab/Rilpiviri/Tenof Ala (Odefsey Tablet) 200 Mg-25 Mg-25 Mg Tablet, 1 TAB PO DAILY, #30 TAB 9 Refills Prov:LUCIE MACHADO DO 10/23/18 Albuterol Sulfate (PROVENTIL HFA) 6.7 Gm Inh, 1-2 PUFF INH 3-4XD for WHEEZING, #1 INH 6 Refills Prov:LUCIE MACHADO DO 10/23/18 Reported Medications Pnv #116/Iron Fumarate/Fa/Dha (EXPECTA COMBO PACK) 1 Each Combo..pkg, 1 03/29/18 Citalopram Hydrobromide (CELEXA) 20 Mg Tablet, 40 MG PO QDAY, #5 TAB 11/08/17 Follow up with: [facility] [phone], Dr. Machado [phone] Follow up in: 3-4 days Discharge Diet: As Tolerates Discharge Activity: No Heavy Lifting x 6 wks, Bed Rest, Pelvic Rest DERRELL CAMPOS CNM February 17, 2019 10:05
[2019-02-22] MEDS ORDERED: CITA-156 PO (16:07)
== END 2019-02-17 10:09 | disposition home or self-care (01) ==
LOC: OB 22:04
PROVIDERS: ADMIT Obstetrics & Gynecology; ATTEND Obstetrics & Gynecology
DX: O46.93 Antepartum hemorrhage, unspecified, third trimester (principal); Z3A.33 33 weeks gestation of pregnancy; O98.713 Human immunodeficiency virus [HIV] disease complicating pregnancy, third trimester; F12.90 Cannabis use, unspecified, uncomplicated; F17.210 Nicotine dependence, cigarettes, uncomplicated
CPT/HCPCS: 80305; 81001; 87081; G0378; G0379; J7120; Q0162; S0119

== ENCOUNTER 2019-02-21 16:00 | Outpatient (RCR) | payer MEDICARE, MEDICAID ==
--- NOTE | 2019-01-31 17:37 | PT INITIAL EVALUATION ---
MEDICAL DIAGNOSIS: M25.561 B knee pain, O99.89 Back pain affecting TREATMENT DIAGNOSIS: Same DATE OF ONSET: 12/31/18 SUBJECTIVE: Anusha Warren presents to PT for insidious onset of B anterior knee ache at night (limiting sleep to 4 hours total) and LBP, R>L hip pain with standing, sitting >2 hours, onset about one month ago. She's 30 weeks gestation, 6th gestation, 5 . Planned is 2018. Pain location is L-S/R>L hip, B anterior knees and described as ache, tightness. Pain scale is 8 on a ten point pain scale. Pain is worse with knees: trying to sleep at night, L-S/hips: standing or sitting >2 hours and better with rest. 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 ROM: AROM lumbar spine flexion, extension minimal with muscle stuttering, side glide B WNL for gestation. SI AROM reduced, pain limited, R anterior and L posterior ilium. Hip PROM WNL B. Strength: Core strength <3/5, B quads 4/5, knee pain limited. Palpation: Painful R G. medius B, L higher tone than R, R L-S paraspinal, R anterior hip and hip flexor at the lesser tuberosity. B cassy-patellar soft tissues painful with palpation. Special Tests: Negative SLR, B. Normal patellar mobility B, lateral tracking patellas and lateral tilt to patellas. Mobility: LBP with bed mobility. Gait: Apparent long R LE. ASSESSMENT: Anusha Warren presents with pelvic rotation creating LBP, hip pain, altered gait, anterior knees tendinitis from weak quads, creating tendinitis symptoms at night, disrupting sleep. She had less LBP and less knee pain with manual therapy and B knee cold packs. Short Term Goals/Patient's Goals One month: Anusha sleeps 6 hours per night with mild knee pain, LBP 6/10 with standing 2 hours. Two months: Anusha rates knee pain at night 4/10, sleeps 6 hours, LBP 3-4/10 with standing 2 hours. PLAN: Patient to be seen for Manual Therapy, Strengthening/condition, Ice/Heat, Spinal Stabilization, Stretching, Home Exercise Program 2x/Week for to March 21, 2019 Thank you for this referral. If you have any questions, comments, or concerns about this report or plan, please contact me at . [facility]
[2019-02-16 22:30] VITALS: BMI 37.9
[~2019-02-21 16:00] MED LIST changes: -OMEP-125 PO; +OMEP-126 PO
[2019-02-22] MEDS ORDERED: CITA-156 PO (16:07)
--- NOTE | 2019-03-20 08:32 | PT PLAN OF CARE ---
Physician: Dr. Jayson Tompkins Patient is being seen: 1-2x/week Therapist: Moni Huerta, PT Medical Diagnosis: M25.561 B knee pain, O99.89 Back pain affecting Treatment Diagnosis: Same Date of Onset: 12/31/18 Date of Initial Evaluation: 01/31/19 Date patient was last seen: 02/21/19 Number of treatments: 5 Number of cancellations/No shows: 3 INTERVENTIONS: Manual Therapy, Strengthening, Spinal Stabilization, Home Exercise Program GOALS/PATIENT'S GOAL: All partially met (bed rest): One month: Anusha sleeps 6 hours per night with mild knee pain, LBP 6/10 with standing 2 hours. Two months: Anusha rates knee pain at night 4/10, sleeps 6 hours, LBP 3-4/10 with standing 2 hours. Patient Compliance: Good Prognosis: Excellent Reasons for discontinuing therapy: S: Anusha reported on her 02/21/19 PT visit that her baby had dropped and her LBP/hip pain was resolved. She related her function was improved for bed rest, no heavy lifting. Posture: Mild R anterior ilium. Gait: Normal gait for gestation. Palpation: R hip pain with palpation, relieved with manual therapy. A/P: Anusha Warren had pain relief at the end of her last trimester. As she's delivered, I'll DC PT. Thank you. JEREMY
== END 2019-02-21 18:00 | disposition home or self-care (01) ==
LOC: PT 16:00
PROVIDERS: ATTEND Student in an Organized Health Care Education/Training Program
DX: M25.561 Pain in right knee (principal); M54.5 Low back pain; O99.89 Other specified diseases and conditions complicating pregnancy, childbirth and the puerperium; B20 Human immunodeficiency virus [HIV] disease
CPT/HCPCS: 97162

== ENCOUNTER → 2019-02-22 | Outpatient (CLI) | payer MEDICARE, MEDICAID ==
[2019-02-16 22:30] VITALS: BMI 37.9
[~2019-02-22] MED LIST changes: +OMEP-125 PO; -OMEP-126 PO
== END ==
LOC: LAB 08:14
PROVIDERS: ATTEND Student in an Organized Health Care Education/Training Program
DX: Z02.9 Encounter for administrative examinations, unspecified (principal)

== ENCOUNTER 2019-03-02 18:36 | Emergency (ER) | payer MEDICARE, MEDICAID ==
[2019-02-16 22:30] VITALS: Wt 101.2 kg
--- NOTE | 2019-03-02 19:09 | ER Report ---
History and Physical Time Seen By MD: 19:01 Hx. of Stated Complaint: COMPLAINS OF COUGH X 1 WEEK HPI/ROS CHIEF COMPLAINT: Cough, congestion HISTORY OF PRESENT ILLNESS: Patient is a 33-year-old female who is near term gestation and scheduled for in the next 2 weeks secondary to history of HIV. Patient is a ; states that she is taking her antiretroviral. And has been "healthy" through most of this . She also has a history of methamphetamine abuse but has been clean since this . She presents with approximately 1 week or more of cough and subjective chills but no fevers. Patient has been using her albuterol inhaler at home without symptomatic relief she did try to reach out to her WEATHERIZATION ADMINISTRATOR today and was instructed to come to the emergency department for evaluation. REVIEW OF SYSTEMS: Respiratory: Cough Cardiovascular: No chest pain, no palpitations. Gastrointestinal: No vomiting, no abdominal pain. Musculoskeletal: No back pain. Allergies: Coded Allergies: succinylcholine (Verified Allergy, Severe, CAN'T METABLOLIZE, 03/02/19) Family history only. Penicillins (Verified Allergy, Unknown, UNKNOWN, 03/02/19) Told as a girl. amoxicillin (Verified Allergy, Unknown, 03/02/19) erythromycin base (Verified Adverse Reaction, Mild, NAUSEA/VOMITING, 03/02/19) Home Meds Active Scripts Azithromycin (ZITHROMAX) 250 Mg Tablet, 1 TAB PO QDAY, #4 TAB 0 Refills next dose on 03/03/19 Prov:ISRA SMITH MD 03/02/19 Prednisone (PREDNISONE) 20 Mg Tablet, 60 MG PO QDAY, #12 TAB 0 Refills next dose on 03/03/19 Prov:ISRA SMITH MD 03/02/19 Citalopram Hydrobromide (CELEXA) 20 Mg Tablet, 60 MG PO QDAY for 30 Days, #90 TAB 2 Refills Prov:LUCIE MACHADO DO 02/22/19 Ondansetron Hcl (ZOFRAN) 4 Mg Tablet, 4 MG PO Q6H MDD 24MG, #30 TAB 2 Refills Prov:LUCIE MACHADO DO 02/05/19 Omeprazole (OMEPRAZOLE) 20 Mg Capsule., 1 CAP PO QDAY, #30 CAP 2 Refills Prov:LUCIE MACHADO DO 01/03/19 Emtricitab/Rilpiviri/Tenof Ala (Odefsey Tablet) 200 Mg-25 Mg-25 Mg Tablet, 1 TAB PO DAILY, #30 TAB 9 Refills Prov:LUCIE MACHADO DO 10/23/18 Albuterol Sulfate (PROVENTIL HFA) 6.7 Gm Inh, 1-2 PUFF INH 3-4XD for WHEEZING, #1 INH 6 Refills Prov:LUCIE MACHADO DO 10/23/18 Reported Medications Pnv #116/Iron Fumarate/Fa/Dha (EXPECTA COMBO PACK) 1 Each Combo..pkg, 1 03/29/18 Discontinued Reported Medications Citalopram Hydrobromide (CELEXA) 20 Mg Tablet, 40 MG PO QDAY, #5 TAB 11/08/17 Past Medical/Surgical History Past medical history for methamphetamine abuse, history of smoking and currently a half pack per day.. HIV currently on antiretrovirals Hx Smoking: Yes Smoking Status: Current: Every Day Smoker Exposure to Second Hand Smoke?: Yes Hx Substance Use Disorder: Yes (etoh, meth - CLEAN SINCE SEP 2017) Hx Alcohol Use: No Constitutional Vital Sign - Last 24 Hours 03/02/19 03/02/19 03/02/19 03/02/19 18:44 18:49 19:00 19:06 Temp 97.4 Pulse 87 79 Resp 19 B/P (MAP) 128/83 127/76 (93) 135/70 (91) Pulse Ox 92 91 O2 Delivery Room Air 03/02/19 03/02/19 03/02/19 03/02/19 19:11 19:18 19:18 19:26 Pulse 80 74 77 Resp 16 16 Pulse Ox 93 92 O2 Delivery Room Air 03/02/19 03/02/19 03/02/19 03/02/19 19:30 19:54 19:54 20:01 Pulse 72 78 Resp 16 16 B/P (MAP) 138/76 (96) Pulse Ox 92 O2 Delivery Room Air Physical Exam General Appearance: The patient is alert, has no immediate need for airway protection and no signs of toxicity. Eyes: Pupils equal and round no pallor or injection. ENT, Mouth: Mucous membranes are moist. Respiratory: Patient with audible wheeze with cough, no accessory muscle use. Cardiovascular: Regular rate and rhythm. [ ] Gastrointestinal: Abdomen is soft and non tender, no masses, bowel sounds normal. Neurological: Awake and alert Skin: Warm and dry, no rashes. Musculoskeletal: Neck is supple non tender. Extremities are nontender, nonswollen and have full range of motion. Medical Decision Making ED Course/Re-evaluation ED Course 03/02/2019 7:32:15 pm patient with reactive airways disease we'll give DuoNeb treatment prednisone and course of oral Zithromax. We will obtain heart tones as well. heart rate by Madelin 145 bpm Decision to Disposition Date: March 02, 2019 Decision to Disposition Time: 20:06 Depart Departure Latest Vital Signs Vital Signs Date Time Temp Pulse Resp B/P (MAP) Pulse Ox O2 Delivery O2 Flow Rate FiO2 03/02/19 20:01 78 16 03/02/19 19:54 92 Room Air 03/02/19 19:30 138/76 (96) 03/02/19 18:44 97.4 Impression: Primary Impression: Reactive airway disease with acute exacerbation Condition: Improved Disposition: HOME OR SELF-CARE Referrals: LUCIE MACHADO DO (PCP) New Scripts Azithromycin (ZITHROMAX) 250 Mg Tablet 1 TAB PO QDAY, #4 TAB 0 Refills next dose on 03/03/19 Prov: ISRA SMITH MD 03/02/19 Prednisone (PREDNISONE) 20 Mg Tablet 60 MG PO QDAY, #12 TAB 0 Refills next dose on 03/03/19 Prov: ISRA SMITH MD 03/02/19 Patient Instructions: Reactive Airways Disease (ED) Problem Qualifiers Primary Impression: Reactive airway disease with acute exacerbation Asthma severity: moderate Asthma persistence: persistent Qualified Codes: J45.41 - Moderate persistent asthma with (acute) exacerbation ISRA SMITH MD March 02, 2019 19:09
[2019-03-02] MEDS ORDERED: predniSONE 20 MG TAB PO ONE (19:10)
[2019-03-02] MEDS ORDERED: ALBUTEROL/IPRATROPIUM 3 ML NEB NEB ONE ×2 (19:10→19:50)
[2019-03-02] MEDS ORDERED: AZITHROMYCIN 250 MG TAB PO ONE (19:10)
[2019-03-02 19:30] VITALS: BP 138/76
[2019-03-02] MEDS ORDERED: AZIT-1 PO (20:04)
[2019-03-02] MEDS ORDERED: PRED20TA6 PO (20:04)
[2019-03-02] MEDS ORDERED: ALBUTEROL 8 GM INHALER INH ONE (20:05)
== END 2019-03-02 20:15 | disposition home or self-care (01) ==
LOC: ER 18:50
DX: O99.513 Diseases of the respiratory system complicating pregnancy, third trimester (principal); J45.41 Moderate persistent asthma with (acute) exacerbation
CPT/HCPCS: 94640; 99284; J7512; J7620; Q0144

== ENCOUNTER 2019-03-13 15:18 | Inpatient (IN) | payer MEDICARE, MEDICAID ==
[2019-02-16 22:30] VITALS: Ht 160 cm
[2019-03-13] VITALS (10 sets, daily range): BP systolic 98–125; BP diastolic 56–84
[~2019-03-13 15:18] MED LIST changes: +AZIT-1 PO; +MORPHINE PF 5 MG/10 ML AMP ONE; -OMEP-125 PO; +OMEP-126 PO; +ONDANSETRON 4 MG/2 ML VIAL ONE; +OXYTOCIN 10 UNIT/ML SDV ONE; +PHENYLEPHRINE 10 MG/1 ML VIAL ONE; +fentaNYL CITR 100 MCG/2 ML AMP ONE
[2019-03-13] MEDS ORDERED: PHENYLEPHRINE 10 MG/1 ML VIAL ONE (15:20)
[2019-03-13] MEDS ORDERED: KETOROLAC 30 MG/ML VIAL ONE (15:20)
[2019-03-13] MEDS ORDERED: FAMOTIDINE(*) 20MG/50ML PREMIX 50 ML IVPB PRN (15:22)
[2019-03-13] MEDS ORDERED: DLR(*) 1000 ML BAG 1,000 ML IV SCH (15:22)
[2019-03-13] MEDS ORDERED: LIDOCAINE 1% LOCAL 300 MG/30ML INJ PRN (15:25)
[2019-03-13] MEDS ORDERED: DEXTROSE 5% IVPB ONE ×2 (15:25→16:05)
[2019-03-13] MEDS ORDERED: fentaNYL CITR 100 MCG/2 ML AMP IVP PRN (15:25)
[2019-03-13] MEDS ORDERED: ZIDOVUDINE IVPB ONE ×2 (15:25→16:05)
[2019-03-13] MEDS ORDERED: cefOXitin/DEX(*) 2GM/50ML PREM 50 ML IVPB PRN (15:25)
[2019-03-13] MEDS ORDERED: METOCLOPRAMIDE 10 MG/2 ML SDV IVP PRN (15:25)
[2019-03-13] MEDS ORDERED: NEVIRAPINE 200 MG TAB PO ONE (15:25)
[2019-03-13] MEDS ORDERED: LIDOCAINE/SOD BICARB 8.4% SYR SC PRN (15:25)
[2019-03-13 15:41] LABS: PLATELET COUNT, AUTOMATED 308 K/uL (150-450)
[2019-03-13] MEDS ORDERED: OXYTOCIN 10 UNIT/ML SDV ONE (16:21)
[2019-03-13] MEDS ORDERED: OXYTOCIN 30 UNIT/NS 500 ML 500 ML IV PRN (17:23)
[2019-03-13] MEDS ORDERED: PROMETHAZINE 25 MG/ML 1 ML AMP IVP PRN (17:25)
[2019-03-13] MEDS ORDERED: ONDANSETRON 4 MG/2 ML VIAL IV PRN (17:25)
[2019-03-13] MEDS ORDERED: SIMETHICONE 80 MG CHEW CHEW PRN (17:25)
[2019-03-13] MEDS ORDERED: LANOLIN OINT 7 GM TUBE TP PRN (17:25)
[2019-03-13] MEDS ORDERED: INFLUENZA VIRUS VAC 0.5ML SYR IM ONE (17:25)
[2019-03-13] MEDS ORDERED: ACETAMINOPHEN 325 MG TAB PO PRN (17:25)
[2019-03-13] MEDS ORDERED: ZOLPIDEM TARTRATE 10 MG TAB PO PRN (17:25)
--- NOTE | 2019-03-13 17:33 | History & Physical ---
History of Present Illness Age of Patient: 33 : 6 Para or TPAL: 3114 EDC per U/S: Apr 03, 2019 Estimated Gestational Age: 37.0 Chief Complaint Painful contractions History of Present Illness Pt is a 33 y.o @ 37-0/7 wga who presented to clinic with a chief complaint of painful contractions. Was noted to be 3-4 cm with very thin cervix. She denies loss of amniotic fluid or vaginal bleeding. GOod movement. History Patient's Blood Type: O Positive Rubella Status: Immune Group B Strep Screen: Negative Obstetrical History: X 2 C/S X 2 Past Medical History: HIV positive Hypothyroid Meth use Allergies: Coded Allergies: succinylcholine (Verified Allergy, Severe, CAN'T METABLOLIZE, 03/02/19) Family history only. Penicillins (Verified Allergy, Unknown, UNKNOWN, 03/02/19) Told as a girl. amoxicillin (Verified Allergy, Unknown, 03/02/19) erythromycin base (Verified Adverse Reaction, Mild, NAUSEA/VOMITING, 03/02/19) Social History: Patient lives with her boyfriend of about 4 years. Smokes 2-4 cigarettes per day, smokes pot a few times per week. Family History: Drug addiction FATHER, , Age:49 FH: COPD (chronic obstructive pulmonary disease) FATHER, , Age:49 MOTHER, Age:50 FH: HTN (hypertension) FATHER, , Age:49 FH: congestive heart failure FATHER, , Age:49 FH: depression MOTHER, Age:50 FH: rheumatoid arthritis FATHER, , Age:49 Fibromyalgia MOTHER, Age:50 Graves' disease MOTHER, Age:50 Schizophrenia MOTHER, Age:50 Med Rec Home Meds Active Scripts Azithromycin (ZITHROMAX) 250 Mg Tablet, 1 TAB PO QDAY, #4 TAB 0 Refills next dose on 03/03/19 Prov:ISRA SMITH MD 03/02/19 Prednisone (PREDNISONE) 20 Mg Tablet, 60 MG PO QDAY, #12 TAB 0 Refills next dose on 03/03/19 Prov:ISRA SMITH MD 03/02/19 Citalopram Hydrobromide (CELEXA) 20 Mg Tablet, 60 MG PO QDAY for 30 Days, #90 TAB 2 Refills Prov:LUCIE MACHADO DO 02/22/19 Ondansetron Hcl (ZOFRAN) 4 Mg Tablet, 4 MG PO Q6H MDD 24MG, #30 TAB 2 Refills Prov:LUCIE MACHADO DO 02/05/19 Omeprazole (OMEPRAZOLE) 20 Mg Capsule.dr, 1 CAP PO QDAY, #30 CAP 2 Refills Prov:LUCIE MACHADO DO 01/03/19 Emtricitab/Rilpiviri/Tenof Ala (Odefsey Tablet) 200 Mg-25 Mg-25 Mg Tablet, 1 TAB PO DAILY, #30 TAB 9 Refills Prov:LUCIE MACHADO DO 10/23/18 Albuterol Sulfate (PROVENTIL HFA) 6.7 Gm Inh, 1-2 PUFF INH 3-4XD for WHEEZING, #1 INH 6 Refills Prov:LUCIE MACHADO DO 10/23/18 Reported Medications Pnv #116/Iron Fumarate/Fa/Dha (EXPECTA COMBO PACK) 1 Each Combo..pkg, 1 03/29/18 Review of Systems All Systems Reviewed/Normal: Yes, Except as Noted Constitutional: No Fever, No Weight Loss, No Weight Gain, No Chills, No Night Sweats, No Other Neurological: No Syncope, No Confusion, No Weakness, No Dizziness, No Slurred Speech, No Other Eyes: No Vision Change, No Loss of Vision, No Photophobia, No Other ENT: No Hearing Loss, No Sinus Congestion, No Sore Throat, No Ear Ache, No Tinnitus, No Other Cardiovascular: No Chest Pain, No Palpitations, No Orthostatic Hypotension, No Other Respiratory: No Shortness of Breath, No Cough, No Wheezing, No Other Gastrointestinal: No Nausea, No Vomiting, No Diarrhea, No Dysphagia, No Constipation, No Early Satiety, No Hematemesis, No Hematochezia, No Melena, No Abdominal Pain, No Other Genitourinary: No Dysuria, No Hematuria, No Urinary Incontinence, No Other Musculoskeletal: No Pain, No Sprain, No Strain, No Impaired Mobility, No Other Psychiatric: No Depression, No Anxiety, No Other Exam General Exam General Apperance: Alert/Awake/No Acute Distress Neuro: No Gross deficits Eyes: Normal Extraocular Movement & Vison ENT: Normal Cardiovascular: Regular Rate and Rhythm Respiratory: No Respiratory Distress Abdomen: Soft, Non-Tender, Non-Distended, Gravid - Non-Tender : Normal Musculoskeletal: No Weakness/Pain Extremities: No Cyanosis,Clubbing or Edema Integumentary: Skin Intact without Lesions or Rash Psychological: Alert & Oriented X3, Appropriate Mood & Affect Vaginal Discharge/Fluid?: Bloody Show Cervical Dialation: 4 Cervical Effacement (%): 90 Cervical Consistency: Soft Cervical Position: Anterior Station: -2 Presentation: Vertex Uterine Contractions(Q min): 3 Uterine Contraction Strength: Strong UC Resting Tone: Soft Fetus Feeling Movement?: Yes Estimated Weight(grams): 3000 Heart Tone Variabilty: Moderate FHT Accelerations: 15X15 FHT Decelerations: None FHT Category: I Medical Decision Making Data Points Result Diagram: 03/13/19 1532 Pre-Admit Course Medical Record Review: Yes VTE Prophylasis: Adult Deep Vein Thrombosis/Pulmonary: No Assessment and Plan CIRCUIT [facility] MAGISTRATE Assessment: Stable [facility] MAGISTRATE Plan: Routine Post-Op Care Problems: (1) Active labor at term Status: Resolved Assessment & Plan: History of two prior c/s. With labor will proceed with RLTCS/BTL. 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 Also received Oral Nevaripine. Viral load drawn today. (3) Methamphetamine abuse in remission Status: Chronic Assessment & Plan: Urine Drug screen today. (4) HIV (human immunodeficiency virus infection) Status: Chronic LUCIE MACHADO DO Mar 13, 2019 17:33
--- NOTE | 2019-03-13 17:38 | Post Operative Note ---
Operative Note - DISTRICT COURT JUDGE Operative Day Date: Mar 13, 2019 Time: 17:33 Physicians Surgeon: Lucie Tompkins DO Furniture Finisher: Fanny Duran MD Anesthesia: Spinal Diagnosis Pre-Op Diagnosis: 33 y/o @ 37-0/7 Labor Prior C/S X 2 HIV positive Meth use Hypothyroid Procedure Findings: live born female infant at 1626, APGARS of 8/9 weight 2572 gm 5 # 10oz. 3 vc/IP. Meconium stained amniotic fluid. Procedure(s): RLTCS/BTL Specimen Removed:(Maybe N/A): Fallopian tube segments. Complications: 0 known Fluids Fluids: 1200 LR u/o: 100 Estimated Blood Loss: 800 Dictated Date OP Note Dictated: Mar 14, 2019 Time OP Note Dictated: 11:32 LUCIE TOMPKINS DO Mar 13, 2019 17:37
--- NOTE | 2019-03-13 17:47 | Anesthesia OB Pre-Anes Eval ---
History of Present Illness Anesthesia Start Date: Mar 13, 2019 Anesthesia Start Time: 15:37 OB Anesthesia Diagnosis: spontaneous labor, repeat c/section Current Complication: obesity, other (HIV +) EDC: Apr 03, 2019 : 6 Para: 5 Pain Ratin Result Diagram: 03/13/19 1532 Height (Inches): 63 Weight (Pounds): 223 BMI (kg/m2): 39.50 Past Medical History Medical History: illicit drug use, obesity, other (smoker) Surgical History: Previous Anesthesia: spinal Attended Childbirth Classes?: No Hx Anesthesia Reactions: No Hx Family Anesthesia Reaction: Yes (uncle w pseudocholinesterase def.) Home Meds Active Scripts Azithromycin (ZITHROMAX) 250 Mg Tablet, 1 TAB PO QDAY, #4 TAB 0 Refills next dose on 03/03/19 Prov:ISRA SMITH MD 03/02/19 Prednisone (PREDNISONE) 20 Mg Tablet, 60 MG PO QDAY, #12 TAB 0 Refills next dose on 03/03/19 Prov:ISRA SMITH MD 03/02/19 Citalopram Hydrobromide (CELEXA) 20 Mg Tablet, 60 MG PO QDAY for 30 Days, #90 TAB 2 Refills Prov:JEANNETTELUCIE ANTHONY DO 02/22/19 Ondansetron Hcl (ZOFRAN) 4 Mg Tablet, 4 MG PO Q6H MDD 24MG, #30 TAB 2 Refills Prov:JEANNETTELUCIE ANTHONY DO 02/05/19 Omeprazole (OMEPRAZOLE) 20 Mg Capsule.dr, 1 CAP PO QDAY, #30 CAP 2 Refills Prov:JEANNETTELUCIE ANTHONY DO 01/03/19 Emtricitab/Rilpiviri/Tenof Ala (Odefsey Tablet) 200 Mg-25 Mg-25 Mg Tablet, 1 TAB PO DAILY, #30 TAB 9 Refills Prov:JEANNETTELUCIE ANTHONY DO 10/23/18 Albuterol Sulfate (PROVENTIL HFA) 6.7 Gm Inh, 1-2 PUFF INH 3-4XD for WHEEZING, #1 INH 6 Refills Prov:JEANNETTELUCIE ANTHONY DO 10/23/18 Reported Medications Pnv #116/Iron Fumarate/Fa/Dha (EXPECTA COMBO PACK) 1 Each Combo..pkg, 1 03/29/18 Allergies: Coded Allergies: succinylcholine (Verified Allergy, Severe, CAN'T METABLOLIZE, 03/02/19) Family history only. Penicillins (Verified Allergy, Unknown, UNKNOWN, 03/02/19) Told as a girl. amoxicillin (Verified Allergy, Unknown, 03/02/19) erythromycin base (Verified Adverse Reaction, Mild, NAUSEA/VOMITING, 03/02/19) Anesthesia OB ROS Neurological: No migraines/headaches, No seizures, No neuropathy, No other ENT: Other (missing 2 front upper teeth) Pulmonary: smoker (pks/day/yrs) Airway Class: lll Cardiovascular ROS: No edema, No arrhythmia, No other GI ROS: NPO Last Solids Date: Mar 12, 2019 ROS: Other (HIV +) Endocrine ROS: No diabetes, No gestational diabetes, No thyroid disorder, No other Musculoskeletal ROS: No low back pain, No low back injury, No scoliosis, No other ASA Classification: 3, E Assessment and Plan Anesthesia Plan: SHELBY Anesthesia Stop Day: Mar 13, 2019 Anesthesia Stop Time: 17:25 VELMA WHITTINGTON CRNA Mar 13, 2019 17:46
[2019-03-13] MEDS ORDERED: LR(*) 1000 ML BAG 2,000 ML ONE (19:15)
[2019-03-13] MEDS ORDERED: LR(*) 1000 ML BAG 1,000 ML ONE (19:16)
[2019-03-13] MEDS: NALBUPHINE HCL 10 MG/ML AMP IVP PRN (19:30)
[2019-03-13] MEDS: DLR(*) 1000 ML BAG 1,000 ML IV PRN (20:00)
[2019-03-13] MEDS: DOCUSATE CALCIUM 240 MG CAP PO SCH (21:10)
[2019-03-13] MEDS: oxyCODON/ACET (*)5/325MG (CII) 1 TAB TAB PO PRN (21:10)
[2019-03-13] MEDS: FAMOTIDINE 20 MG TAB PO SCH (21:10)
[2019-03-13] MEDS: KETOROLAC 30 MG/ML VIAL IVP SCH (21:18)
[2019-03-14] VITALS: BP 100/65
[2019-03-14] MEDS: oxyCODON/ACET (*)5/325MG (CII) 1 TAB TAB PO PRN ×4 (01:40→20:16)
[2019-03-14] MEDS: DLR(*) 1000 ML BAG 1,000 ML IV PRN ×2 (01:40→07:46)
[2019-03-14] MEDS: NALBUPHINE HCL 10 MG/ML AMP IVP PRN (02:20)
[2019-03-14 04:00] VITALS: BP 105/45
[2019-03-14] MEDS: KETOROLAC 30 MG/ML VIAL IVP SCH (05:00)
[2019-03-14 06:56] LABS: PLATELET COUNT, AUTOMATED 233 K/uL (150-450)
[2019-03-14 07:47] VITALS: BP 92/41
[2019-03-14] MEDS: FERROUS SULFATE 325 MG TAB PO SCH ×2 (09:06→17:28)
[2019-03-14] MEDS: DOCUSATE CALCIUM 240 MG CAP PO SCH (09:06)
[2019-03-14] MEDS: FAMOTIDINE 20 MG TAB PO SCH (09:06)
--- NOTE | 2019-03-14 09:23 | OB/GYN Progress Note ---
OB Subjective Progress Notes Subjective Pt was sleeping when I came to see her. She reports that she is doing well. She still has her wilcox in and has had low output. She is not drinking much fluid though. She is passing gas. GI: POS Flatus; NEG Nausea, NEG Vomiting, NEG Bowel Movement : Vaginal Bleeding, Moderate Pain: Mild, Comfortable, Tolerating PO Pain Meds Neurological: No Headache Eyes: No Visual Disturbances OB Objective Physical Exam Vital Signs Date Time Temp Pulse Resp B/P (MAP) Pulse Ox O2 Delivery O2 Flow Rate FiO2 03/14/19 07:47 97.4 58 20 92/41 (58) 96 Nasal Cannula 2.0 Intake and Output 03/14/19 06:59 Intake Total 4300 ml Output Total 410 ml Balance 3890 ml Intake Oral 300 ml IV Total 4000 ml Output Urine Total 410 ml General Appearance: Alert/Awake/No Acute Distress (sleepy) Neurological: No Gross deficits Eyes: Normal Extraocular Movement & Vison ENT: Normal Cardiovascular: Normal Rhythm & Peripheral Pulses Respiratory: No Respiratory Distress Abdomen: Fundus Firm, Tender Incision: Clean, Dry, Intact, Dressing (removed) : Normal Extremities: No Cyanosis,Clubbing or Edema Integumentary: Skin Intact without Lesions or Rash Psychological: Alert & Oriented X3, Appropriate Mood & Affect Result Diagram: 03/14/1935 03/14/19634 Assessment and Plan Post Op Day: 1 [employer]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 Also received Oral Nevaripine. 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 Will order a social work consult (4) HIV (human immunodeficiency virus infection) Status: Chronic Assessment & Plan: Pt to take home HIV medication (5) delivery, delivered, current hospitalization Status: Acute Assessment & Plan: Patient is postop day one status post delivery for high HIV viral load. She still has her Wilcox and has had low urine output, but the Wilcox will be removed today. Encourage by mouth fluids and saline lock IV fluids. Will order a social work consult as patient was positive for Meth. Encouraged patient to get up and ambulate today. Incision is healing well with good approximation and no signs and symptoms of infection. Dressing removed and open to air. Continue routine care. MAGDALENE SMALL CNM Mar 14, 2019 09:23
--- NOTE | 2019-03-14 11:22 | OB/GYN Progress Note ---
OB Subjective Progress Notes Subjective Doing good this morning. Some tenderness near her hernia. Minimal bleeding. Desires to go outside to smoke. . GI: NEG Nausea, NEG Vomiting, NEG Flatus, NEG Bowel Movement : Voiding Well, Vaginal Bleeding, Moderate Pain: Mild, Tolerating PO Pain Meds OB Objective Physical Exam Vital Signs Date Time Temp Pulse Resp B/P (MAP) Pulse Ox O2 Delivery O2 Flow Rate FiO2 03/14/19 07:47 97.4 58 20 92/41 (58) 96 Nasal Cannula 2.0 Intake and Output 03/14/19 07:00 Intake Total 4300 ml Output Total 410 ml Balance 3890 ml Intake Oral 300 ml IV Total 4000 ml Output Urine Total 410 ml General Appearance: Alert/Awake/No Acute Distress (sleepy) Neurological: No Gross deficits Eyes: Normal Extraocular Movement & Vison ENT: Normal Cardiovascular: Normal Rhythm & Peripheral Pulses Respiratory: No Respiratory Distress Abdomen: Fundus Firm, Tender Incision: Clean, Dry, Intact, Dressing (removed) : Normal Extremities: No Cyanosis,Clubbing or Edema Integumentary: Skin Intact without Lesions or Rash Psychological: Alert & Oriented X3, Appropriate Mood & Affect Result Diagram: 03/14/1935 03/14/1935 Assessment and Plan Problems: (1) Active labor at term Status: Resolved 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 Will have confirmatory testing performed. Pediatrics and social work job titles informed. (4) HIV (human immunodeficiency virus infection) Status: Chronic (5) delivery, delivered, current hospitalization Status: Acute Assessment & Plan: POD #1. Will monitor per Stephanie's note. LUCIE MACHADO DO Mar 14, 2019 11:22
--- NOTE | 2019-03-14 12:13 | OPERATIVE REPORT 1 ---
EVENT DATE: March 13, 2019 SURGEON: Jayson Tompkins DO ANESTHESIA: Spinal with Yesika Cage CRNA WELDING MANAGER: Fanny Duran MD PREOPERATIVE DIAGNOSIS 1. 33-year-old 6, para 4 at 37 and 0.7 weeks gestation. 2. Labor. 3. Prior section x2. 4. HIV positive. 5. History of methamphetamine use. 6. Hypothyroid. 7. Desires sterility. POSTOPERATIVE DIAGNOSIS 1. 33-year-old 6, para 4 at 37 and 0.7 weeks gestation. 2. Labor. 3. Prior section x2. 4. HIV positive. 5. History of methamphetamine use. 6. Hypothyroid. 7. Desires sterility. 8. Delivered. PROCEDURE PERFORMED 1. Repeat low-transverse section with bilateral tubal ligation via the Jacoby method. FINDINGS Live-born female at 1626 of 03/13/2019 with Apgars of 8 and 9, weighing 2572 grams, 5 pounds 10 oz. 3-vessel cord, intact placenta. There was meconium stained amniotic fluid noted. Normal tubes and ovaries bilaterally. ESTIMATED BLOOD LOSS 800 cc. IV FLUIDS 1200 cc lactated ringers URINE OUTPUT 100 cc. PATHOLOGY Bilateral fallopian tube segments. COMPLICATIONS None known. CONDITION Stable to x2. Mother and to remain in /recovery room. Counts were correct for all needs, lap, sponges, and instruments. LABOR SUMMARY The patient is a 33-year-old 6, para 4 at 37 and 0.7 weeks gestation who presented to clinic with a chief complaint of painful contractions. She was 3 cm dilated and she was sent to Labor and Delivery as she was appearing to be in labor and with her HIV history, she needed to have preoperative antiretrovirals. The patient was sent to Labor and Delivery. She did receive 2 mg/kg loading dose of IV Zidovudine as well as oral Nevirapine per the [place] HIV guidelines. The patient was consented and signed all appropriate consents. She was taken to the operating room for her repeat with tubal ligation. DESCRIPTION OF PROCEDURE The patient was taken to the operating room where she had a spinal anesthesia placed. She was then placed in the dorsal supine position. She was then prepped and draped in the usual sterile manner. A Pfannenstiel incision was then created with a 10 blade scalpel. This was carried sharply all the way down to the layer of the fascia. Once the fascia was visualized, it was notched bilaterally. The fascial incision was then extended laterally in a curvilinear manner with Landon scissors. The fascia was dissected off the rectus muscle sharply, both inferior and superiorly. The muscles were at midline. The peritoneum was grasped with hemostats and entered sharply. A gentle traction was performed. The bladder blade was placed. A bladder flap was created using Metzenbaum scissors and [place]ian pickups. A low-transverse incision was created on the uterus with the scalpel. This was carried down until the amnion was visualized. Hemostats were placed within the incision to insure there was no laceration of the infant's head secondary to the patient's HIV status. At this point, amnion was visualized. It was not ruptured. It was noted to be lightly-stained meconium fluid. Amnion was ruptured artificially with the hemostat. The bladder blade was removed. The surgeon's hand was placed inside the hysterotomy. The 's head was brought to the level of the hysterotomy. With fundal pressure, the infant's head delivered in a controlled manner, followed by the posterior shoulder with a gentle upward motion and anterior shoulder with gentle downward motion. The remainder of the infant's body delivered spontaneously. At this point, a vigorous female infant was delivered. Mouth and nose were bulb suctioned. The cord was clamped x2 and cut, and handed to awaiting nursing staff to be taken to the warmer to be vigorously cleaned and dried. Cord blood gas was obtained. The placenta was delivered manually. The uterus was then exteriorized, wrapped with a wet laparotomy sponge. The endometrium was cleaned of all clots and debris with a dry laparotomy sponge. The bladder blade was placed. The hysterotomy was closed with a 0 Monocryl in a running manner. An additional 0 Monocryl was used as an imbrication stitch to help with hemostasis. At this point, hemostasis of the hysterotomy was noted. The posterior gutter was cleaned of all clot and debris. Attention was then turned to the tubal ligation. The left fallopian tube was grasped in the mid-insular region with the Brody clamp. A 0 Chromic was then used to suture ligate the looped fallopian tube segment. An additional 0 Chromic was used to help just distal to the first Chromic loop. This was done using the [place] technique. Metzenbaum scissors were then used to remove the fallopian tube segment. This was tagged and given to the nursing staff to be sent to Pathology for confirmation. The same procedure was performed on the right fallopian tube. Both tubal ostia were visualized bilaterally. At this point, the uterus was then placed back inside the abdomen. The right and left gutters were cleaned of all clot and debris. Both tubal sections were inspected and found to be hemostatic. The peritoneum was closed with a 2-0 Monocryl in a running manner. The muscles were inspected and found to be hemostatic. At this point, the fascia was closed with a looped PDS in a running manner. Copious amounts of irrigation were then used in the subcutaneous tissue. After irrigation was performed, the subcutaneous tissue was noted to be greater than 2 cm and it was closed with a 3-0 Monocryl in a running manner. The skin incision was then closed with a 4-0 Monocryl in a subcuticular manner. Dermabond was placed over the incision. The patient was then cleaned and transferred to the recovery room in stable condition. JEREMY
--- NOTE | 2019-03-14 12:48 | Anesthesia Post Eval Note ---
Anesthesia Post Eval Note Vital Signs 03/14/19 07:47 Temp 97.4 Pulse 58 Resp 20 B/P (MAP) 92/41 (58) Pulse Ox 96 O2 Delivery Nasal Cannula O2 Flow Rate 2.0 Pt able to participate in Eval: Yes Cardiovascular Status: Satisfactory Respiratory Status: Satisfactory Pain Managment: Satisfactory PO Nausea/Vomiting: Satisfactory Temperature Management: Satisfactory Mental Status: Satisfactory, Alert, Oriented X3 Post-Op Hydration Status: Satisfactory, Tolerating PO Well Anesthesia Type: VELMA ALONZO CRNA Mar 14, 2019 12:48
[2019-03-14 14:24] VITALS: BP 115/69
[2019-03-14] MEDS: IBUPROFEN 800 MG TAB PO SCH (16:05)
[2019-03-14] MEDS ORDERED: FAMOTIDINE 20 MG TAB PO ONE (16:55)
--- NOTE | 2019-03-14 18:02 | EKG ---
FACILITY: [facility] PATIENT NAME: GERMAIN GARCIA : [id number] MR: [id number] V: [id number] EXAM DATE: ORDERING PHYSICIAN: LUCIE MACHADO TECHNOLOGIST: Test Reason : Epigastric pain Blood Pressure : / mmHG Vent. Rate : 076 BPM Atrial Rate : 076 BPM P-R Int : 112 ms QRS Dur : 090 ms QT Int : 364 ms P-R-T Axes : 015 076 040 degrees QTc Int : 409 ms Normal sinus rhythm Normal ECG When compared with ECG of 19-OCT-2017 12:36, QT has shortened Confirmed by Wilver Donaldson ([id number]) on 03/15/2019 1:10:26 AM Referred By: Confirmed By:Wilver Bangura
[2019-03-14] MEDS ORDERED: CITALOPRAM HYDROBROM 20 MG TAB PO SCH (19:10)
[2019-03-14 19:42] VITALS: BP 125/84
[2019-03-14] MEDS: PANTOPRAZOLE SOD 20 MG TABEC PO SCH (20:17)
[2019-03-15] VITALS (9 sets, daily range): BP systolic 107–135; BP diastolic 65–77
[2019-03-15] MEDS: oxyCODON/ACET (*)5/325MG (CII) 1 TAB TAB PO PRN ×4 (01:38→21:56)
[2019-03-15] MEDS: IBUPROFEN 800 MG TAB PO SCH ×3 (01:38→16:32)
--- NOTE | 2019-03-15 07:17 | OB/GYN Progress Note ---
OB Subjective Progress Notes Subjective PT reports feeling light headed with ambulation, fatigue and requiring oxygen. She denies significant pain and reports decreasing lochia. Bottle feeding. OB Objective Physical Exam Vital Signs Date Time Temp Pulse Resp B/P (MAP) Pulse Ox O2 Delivery O2 Flow Rate FiO2 03/15/19 00:10 97.3 77 16 107/65 (79) 94 Nasal Cannula 2.0 Intake and Output 03/15/19 07:00 Intake Total 3660 ml Output Total 1450 ml Balance 2210 ml Intake Oral 2660 ml IV Total 1000 ml Output Urine Total 1450 ml # Voids 2 General Appearance: Alert/Awake/No Acute Distress (sleepy) Neurological: No Gross deficits Eyes: Normal Extraocular Movement & Vison ENT: Normal Cardiovascular: Normal Rhythm & Peripheral Pulses Respiratory: No Respiratory Distress Abdomen: Fundus Firm, Tender Incision: Clean, Dry, Intact, Dressing : Normal Extremities: No Cyanosis,Clubbing or Edema Integumentary: Skin Intact without Lesions or Rash Psychological: Alert & Oriented X3, Appropriate Mood & Affect Result Diagram: 03/14/19 0635 03/14/19 0635 Assessment and Plan Post Day: 2 Post Op Day: 2 Problems: (1) Active labor at term Status: Resolved 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 PRBC transfusion if indicated. NICOLE ARRIAGA DO Mar 15, 2019 07:17
[2019-03-15] MEDS: FERROUS SULFATE 325 MG TAB PO SCH ×2 (08:42→17:00)
[2019-03-15] MEDS: DOCUSATE CALCIUM 240 MG CAP PO SCH ×3 (09:00→21:56)
[2019-03-15] MEDS: FAMOTIDINE 20 MG TAB PO SCH ×3 (09:00→21:56)
[2019-03-15] MEDS: PANTOPRAZOLE SOD 20 MG TABEC PO SCH (09:15)
[2019-03-15] MEDS ORDERED: NS(*) 0.9% 500 ML BAG 500 ML ONE (14:05)
[2019-03-15] MEDS ORDERED: DIPHTH/TETANUS/ACEL. PERTUSSIS IM ONLY ONE (17:25)
[2019-03-15] MEDS ORDERED: MEASLES,MUMP,RUBELLA VAC 0.5ML SUBQ ONE (17:25)
[2019-03-15] MEDS ORDERED: CITALOPRAM HYDROBROM 20 MG TAB PO SCH (21:00)
[2019-03-16] MEDS: IBUPROFEN 800 MG TAB PO SCH ×2 (00:34→08:24)
[2019-03-16 00:47] VITALS: BP 145/81
[2019-03-16 06:00] VITALS: BP 146/83
[2019-03-16] MEDS: oxyCODON/ACET (*)5/325MG (CII) 1 TAB TAB PO PRN ×2 (07:04→13:16)
[2019-03-16 07:20] VITALS: BP 136/87
[2019-03-16] MEDS: FAMOTIDINE 20 MG TAB PO SCH (08:24)
[2019-03-16] MEDS: PANTOPRAZOLE SOD 20 MG TABEC PO SCH (08:24)
[2019-03-16] MEDS: DOCUSATE CALCIUM 240 MG CAP PO SCH (08:24)
[2019-03-16] MEDS: FERROUS SULFATE 325 MG TAB PO SCH (08:24)
[2019-03-16 09:31] LABS: PLATELET COUNT, AUTOMATED 256 K/uL (150-450)
--- NOTE | 2019-03-16 10:14 | OB/GYN Progress Note ---
OB Subjective Progress Notes Subjective Doing good this morning. Reports still feeling very exhausted. Tolerating po intake. Voiding with out any difficulty. Ambulatory to outside to smoke. Bottle feeding. GI: NEG Nausea, NEG Vomiting, NEG Flatus, NEG Bowel Movement : Voiding Well, Vaginal Bleeding, Moderate Pain: Mild Neurological: No Headache, No Other Eyes: No Visual Disturbances OB Objective Physical Exam Vital Signs Date Time Temp Pulse Resp B/P (MAP) Pulse Ox O2 Delivery O2 Flow Rate FiO2 03/16/19 07:20 99.0 64 19 136/87 (103) 93 Room Air 03/15/19 19:45 2.0 Intake and Output 03/16/19 07:00 Intake Total 1710 ml Output Total 400 ml Balance 1310 ml Intake Oral 960 ml Blood Product 750 ml Output Urine Total 400 ml General Appearance: Alert/Awake/No Acute Distress (sleepy) Neurological: No Gross deficits Eyes: Normal Extraocular Movement & Vison ENT: Normal Cardiovascular: Normal Rhythm & Peripheral Pulses Respiratory: No Respiratory Distress Abdomen: Fundus Firm, Tender Incision: Clean, Dry, Intact, Dermabond : Normal Extremities: No Cyanosis,Clubbing or Edema Integumentary: Skin Intact without Lesions or Rash Psychological: Alert & Oriented X3, Appropriate Mood & Affect Result Diagram: 03/16/19 0912 03/14/19 0635 Assessment and Plan 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 Hemoglobin from 6.6 to 9.2. Plan to discharge to room in status today. Follow up in 2 weeks. (6) Acute blood loss as cause of postoperative anemia LUCIE MACHADO DO Mar 16, 2019 10:14
[2019-03-16] MEDS ORDERED: IBUP800T37 PO (10:16)
[2019-03-16] MEDS ORDERED: OXYC-373 PO (10:16)
--- NOTE | 2019-03-16 10:19 | OB/GYN Discharge Summary ---
Discharge Summary Reason for Hosp/Final Diag: (1) Active labor at term Status: Resolved Hospital Course & Plan: Pt presented in active labor. Received HIV medications prior to as indicated. Underwent procedure with out any difficulty. Pt remained in the hospital for 3 days post operatively. She did require 2 units of PRBC's. Pt was to be discharged home on POD #3. 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 (4) HIV (human immunodeficiency virus infection) Status: Chronic (5) delivery, delivered, current hospitalization Status: Acute (6) Acute blood loss as cause of postoperative anemia Lates Vital Signs Vital Signs Date Time Temp Pulse Resp B/P (MAP) Pulse Ox O2 Delivery O2 Flow Rate FiO2 03/16/19 07:20 99.0 64 19 136/87 (103) 93 Room Air 03/15/19 19:45 2.0 Weight (Pounds): 223 Weight (Ounces): 9.0 Result Diagram: 03/16/1912 03/14/19 0635 Condition: Improved Discharge: Home, Rooming In Home Meds Active Scripts Oxycodone Hcl/Acetaminophen (OXYCODONE-ACETAMINOPHEN 5-325) 1 Each Tablet, 1 EACH PO Q6H PRN for PAIN, #25 TAB 0 Refills Prov:LUCIE MACHADO DO 03/16/19 Prednisone (PREDNISONE) 20 Mg Tablet, 60 MG PO QDAY, #12 TAB 0 Refills next dose on 03/03/19 Prov:ISRA SMITH MD 03/02/19 Citalopram Hydrobromide (CELEXA) 20 Mg Tablet, 60 MG PO QDAY for 30 Days, #90 TAB 2 Refills Prov:LUCIE MACHADO DO 02/22/19 Ondansetron Hcl (ZOFRAN) 4 Mg Tablet, 4 MG PO Q6H MDD 24MG, #30 TAB 2 Refills Prov:LUCIE MACHADO DO 02/05/19 Omeprazole (OMEPRAZOLE) 20 Mg Capsule., 1 CAP PO QDAY, #30 CAP 2 Refills Prov:LUCIE MACHADO DO 01/03/19 Emtricitab/Rilpiviri/Tenof Ala (Odefsey Tablet) 200 Mg-25 Mg-25 Mg Tablet, 1 TAB PO DAILY, #30 TAB 9 Refills Prov:LUCIE MACHADO DO 10/23/18 Albuterol Sulfate (PROVENTIL HFA) 6.7 Gm Inh, 1-2 PUFF INH 3-4XD for WHEEZING, #1 INH 6 Refills Prov:LUCIE MACHADO DO 10/23/18 Reported Medications Pnv #116/Iron Fumarate/Fa/Dha (EXPECTA COMBO PACK) 1 Each Combo..pkg, 1 03/29/18 Discontinued Scripts Azithromycin (ZITHROMAX) 250 Mg Tablet, 1 TAB PO QDAY, #4 TAB 0 Refills next dose on 03/03/19 Prov:ISRA SMITH MD 03/02/19 Follow up with: [facility] [phone], Dr. Machado [phone] Follow up in: 6 wks PP or PO, 2 wks PO Discharge Diet: As Tolerates Discharge Activity: Pelvic Rest LUCIE MACHADO DO Mar 16, 2019 10:19
[2019-03-16 12:00] VITALS: BP 148/86
== END 2019-03-16 14:00 | disposition home or self-care (01) | DRG 784 ==
LOC: OB 15:18 → PED 03-16 08:08
PROVIDERS: ADMIT Student in an Organized Health Care Education/Training Program; ATTEND Student in an Organized Health Care Education/Training Program
PROC: 10D00Z1 Extraction of Products of Conception, Low, Open Approach (ICD-10-PCS; principal; 2019-03-13 15:45)
PROC: 0UB70ZZ Excision of Bilateral Fallopian Tubes, Open Approach (ICD-10-PCS; 2019-03-13 15:45)
PROC: 30233N1 Transfusion of Nonautologous Red Blood Cells into Peripheral Vein, Percutaneous Approach (ICD-10-PCS; 2019-03-15)
DX: O99.324 Drug use complicating childbirth (principal); O98.72 Human immunodeficiency virus [HIV] disease complicating childbirth; D62 Acute posthemorrhagic anemia; O34.211 Maternal care for low transverse scar from previous cesarean delivery; O99.284 Endocrine, nutritional and metabolic diseases complicating childbirth; E03.9 Hypothyroidism, unspecified; Z30.2 Encounter for sterilization; O77.0 Labor and delivery complicated by meconium in amniotic fluid; O99.214 Obesity complicating childbirth; E66.9 Obesity, unspecified; O99.334 Smoking (tobacco) complicating childbirth; F17.210 Nicotine dependence, cigarettes, uncomplicated; F15.10 Other stimulant abuse, uncomplicated; O90.81 Anemia of the puerperium; Z3A.37 37 weeks gestation of pregnancy; Z37.0 Single live birth; Z88.0 Allergy status to penicillin; Z88.8 Allergy status to other drugs, medicaments and biological substances; Z88.1 Allergy status to other antibiotic agents
CPT/HCPCS: 36415; 80305; 82040; 82247; 82310; 82374; 82435; 82565; 82947; 84075; 84132; 84155; 84295; 84450; 84460; 84520; 85014; 85018; 85025; 86361; 86850; 86900; 86901; 86920; 88184; 88302; 93005; J0694; J1885; J2270; J2300; J2370; J2405; J2590; J2765; J3010; J3485; J7040; J7060; J7120; P9016